=== PATIENT | female | born 1945 | race Caucasian/White ===

== ENCOUNTER → 2023-10-10 09:46 | Outpatient (REF) | payer MEDICARE, SELFPAY ==
[2023-10-10 10:39] LABS: % Basophils 0.9 % (0-2); % Eosinophils 1.1 % (0-6); % Immature Granulocytes 0.4 % (0-0.5); % Lymphocytes 24.4 % (20.5-51.1); % Neutrophils 67.2 % (42.2-75.2); Absolute Basophils 0.1 10^3/uL (0-0.2); Absolute Eosinophils 0.1 10^3/uL (0-0.7); Absolute Lymphocytes 1.9 10^3/uL (1.2-3.4); Absolute Monocytes 0.5 10^3/uL (0.1-0.6); Absolute Neutrophils 5.3 10^3/uL (1.4-6.5); Hematocrit 38.1 % (37.0-47.0); Hemoglobin 12.8 g/dL (12.0-16.0); Mean Corp Hgb Conc. 33.6 g/dL (33.0-37.0); Mean Corpuscular Hgb 31.4 pg (27.0-31.0); Mean Corpuscular Volume 93.4 fL (81.0-99.0); Mean Platelet Volume 9.5 fL (7.4-10.4); NT-proBNP 419 pg/ml; Nucleated Red Blood Cells % 0 %; Platelet Count 378 10^3/uL (130-400); Red Blood Cell Count 4.08 10^6/uL (4.20-5.40); White Blood Cell Count 7.8 10^3/uL (4.8-10.8)
[2023-10-10 10:50] LABS: ALT (SGPT) 11 U/L (0-35); AST (SGOT) 18 U/L (14-36); Albumin 4.3 g/dl (3.5-5.0); Alkaline Phosphatase 86 U/L (38-126); Blood Urea Nitrogen 16 mg/dl (7-17); Calcium 10.8 mg/dl (8.4-10.2); Chloride 102 mmol/L (98-107); Glucose 90 mg/dl (70-99); HDL Cholesterol 64 mg/dl; LDL Cholesterol, Calculated 130 mg/dl; Sodium 136 mmol/L (135-145); Total Bilirubin 0.8 mg/dl (0.2-1.3); Total Cholesterol 232 mg/dl (50-199); Total Protein 6.5 g/dl (6.3-8.2); Triglyceride 194 mg/dl (10-149); Very Low Density Lipoprotein 38 mg/dl (0-30); eGFR 46.91
[2023-10-10 10:58] LABS: Carbon Dioxide 25 mmol/L (22-30)
[2023-10-10 11:17] LABS: TSH Reflex To Free T4 0.98 uIU/ml (0.47-4.68)
== END ==
LOC: REG 09:46
PROVIDERS: ATTENDING PHYSICIAN Internal Medicine Cardiovascular Disease; FAMILY PHYSICIAN Family Medicine
DX: R60.0 Localized edema (principal); I10 Essential (primary) hypertension; E78.2 Mixed hyperlipidemia; R06.09 Other forms of dyspnea
CPT/HCPCS: 36415; 80053; 80061; 83880; 84443; 85025

== ENCOUNTER → 2023-11-28 10:40 | Outpatient (REF) | payer MEDICARE, SELFPAY | LOC: WDC 10:40 | PROVIDERS: ATTENDING PHYSICIAN Family Medicine | DX: Z12.31 Encounter for screening mammogram for malignant neoplasm of breast (principal) | CPT/HCPCS: 77063; 77067 ==

== ENCOUNTER → 2024-03-12 12:45 | Outpatient (REF) | payer MEDICARE, SELFPAY | LOC: RAD 12:45 | PROVIDERS: ATTENDING PHYSICIAN Internal Medicine Cardiovascular Disease; FAMILY PHYSICIAN Family Medicine | DX: I73.9 Peripheral vascular disease, unspecified (principal); Z87.891 Personal history of nicotine dependence | CPT/HCPCS: 93922; 93925 ==

== ENCOUNTER → 2024-03-18 13:16 | Outpatient (REF) | payer MEDICARE, SELFPAY | LOC: HWRAD 13:16 | PROVIDERS: ATTENDING PHYSICIAN Family Medicine | DX: Z87.891 Personal history of nicotine dependence (principal) | CPT/HCPCS: 71271 ==

== ENCOUNTER → 2024-05-02 12:32 | Outpatient (REF) | payer MEDICARE, SELFPAY | LOC: HWRAD 12:32 | PROVIDERS: ATTENDING PHYSICIAN Internal Medicine Critical Care Medicine; FAMILY PHYSICIAN Family Medicine | DX: R91.1 Solitary pulmonary nodule (principal) | CPT/HCPCS: 71250 ==

== ENCOUNTER → 2024-07-16 16:13 | Outpatient (REF) | payer MEDICARE, SELFPAY ==
[2024-07-16 17:41] LABS: % Basophils 0.6 % (0-2); % Eosinophils 1.1 % (0-6); % Immature Granulocytes 0.4 % (0-0.5); % Lymphocytes 26.6 % (20.5-51.1); % Monocytes 6.3 % (1.7-9.3); Absolute Basophils 0.1 10^3/uL (0-0.2); Absolute Eosinophils 0.1 10^3/uL (0-0.7); Absolute Lymphocytes 2.5 10^3/uL (1.2-3.4); Absolute Monocytes 0.6 10^3/uL (0.1-0.6); Hematocrit 35.2 % (37.0-47.0); Hemoglobin 11.8 g/dL (12.0-16.0); Mean Corp Hgb Conc. 33.5 g/dL (33.0-37.0); Mean Corpuscular Hgb 31.1 pg (27.0-31.0); Mean Corpuscular Volume 92.9 fL (81.0-99.0); Mean Platelet Volume 9.7 fL (7.4-10.4); Nucleated Red Blood Cells % 0 %; Platelet Count 364 10^3/uL (130-400); Red Blood Cell Count 3.79 10^6/uL (4.20-5.40); Red Cell Dist. Width 13.2 % (11.5-14.5); White Blood Cell Count 9.3 10^3/uL (4.8-10.8)
[2024-07-16 17:50] LABS: ALT (SGPT) 16 U/L (0-35); AST (SGOT) 21 U/L (14-36); Albumin 4.4 g/dl (3.5-5.0); Alkaline Phosphatase 87 U/L (38-126); Blood Urea Nitrogen 16 mg/dl (7-17); Calcium 10.5 mg/dl (8.4-10.2); Carbon Dioxide 27 mmol/L (22-30); Chloride 106 mmol/L (98-107); Glucose 119 mg/dl (70-99); Potassium 4.8 mmol/L (3.5-5.1); Sodium 140 mmol/L (135-145); Total Bilirubin 0.7 mg/dl (0.2-1.3); Total Protein 6.7 g/dl (6.3-8.2); eGFR 51.75
== END ==
LOC: REG 16:13
PROVIDERS: ATTENDING PHYSICIAN Internal Medicine Hematology & Oncology; FAMILY PHYSICIAN Family Medicine
DX: C50.912 Malignant neoplasm of unspecified site of left female breast (principal); R91.1 Solitary pulmonary nodule; C34.12 Malignant neoplasm of upper lobe, left bronchus or lung
CPT/HCPCS: 36415; 80053; 85025

== ENCOUNTER → 2024-08-01 10:03 | Outpatient (REF) | payer MEDICARE, SELFPAY ==
[2024-08-01] VITALS (11 sets, daily range): BP systolic 42–152; BP diastolic 58–114
[2024-08-01] MEDS: VANCOCIN 530 MG IV (10:53)
--- NOTE | 2024-08-01 12:30 | PTCARENOTE ---
Addendum entered by Rosa Tobias RN 08/01/24 13:08:
patient also given Pepcid due to patients sensitivity to antihistamines. Hives to right inner forearm have decreased in size.
Original Note:
patient returned to IR holding area post port placement. patient noted itching right forearm. cali size hives on lateral forearm. Dr. Ramos at bedside. ordered benadrl. patient reports history of feeling very drowsy with use of antihistamines.
Dr. ramos aware. okay to give benadryl noting no true allergy.
[2024-08-01] MEDS: BENADRYL 25 MG IV (12:33)
[2024-08-01] MEDS: NSS (PRESERVATIVE FREE) 8 ML IV (12:52)
[2024-08-01] MEDS: PEPCID 20 MG IV (12:53)
--- NOTE | 2024-08-01 13:40 | PTCARENOTE ---
patients left hand INT removed before discharge. patient returned to radiology after d/c with c/o left hand swelling and purple color. pressure held on left hand for 10min and ice bag placed. swelling noted to retreat. dot [place] around swelling
and instructed patient and daughter Philly to call with worsening symptoms.
== END ==
LOC: RADI 10:03
PROVIDERS: ATTENDING PHYSICIAN Internal Medicine Hematology & Oncology; FAMILY PHYSICIAN Family Medicine
DX: C50.912 Malignant neoplasm of unspecified site of left female breast (principal); C34.12 Malignant neoplasm of upper lobe, left bronchus or lung
CPT/HCPCS: 36561; 76937; 77001; 99152; 99153; C1788

== ENCOUNTER → 2024-08-12 09:40 | Outpatient (REF) | payer MEDICARE, SELFPAY ==
[2024-08-12 10:34] LABS: Hematocrit 32.4 % (37.0-47.0); Hemoglobin 10.8 g/dL (12.0-16.0); Mean Corp Hgb Conc. 33.3 g/dL (33.0-37.0); Mean Corpuscular Hgb 31.1 pg (27.0-31.0); Mean Corpuscular Volume 93.4 fL (81.0-99.0); Mean Platelet Volume 9.9 fL (7.4-10.4); Platelet Count 271 10^3/uL (130-400); Red Blood Cell Count 3.47 10^6/uL (4.20-5.40); Red Cell Dist. Width 12.9 % (11.5-14.5); White Blood Cell Count 3.9 10^3/uL (4.8-10.8)
[2024-08-12 10:55] LABS: % Eosinophils 1.3 % (0-6); % Lymphocytes 21.6 % (20.5-51.1); % Monocytes 1.3 % (1.7-9.3); % Neutrophils 75.8 % (42.2-75.2); Absolute Eosinophils 0.1 10^3/uL (0-0.7); Absolute Lymphocytes 0.8 10^3/uL (1.2-3.4); Absolute Monocytes 0.1 10^3/uL (0.1-0.6); Nucleated Red Blood Cells % 0 %
[2024-08-12 14:54] LABS: ALT (SGPT) 17 U/L (0-35); AST (SGOT) 20 U/L (14-36); Albumin 3.8 g/dl (3.5-5.0); Alkaline Phosphatase 95 U/L (38-126); Blood Urea Nitrogen 15 mg/dl (7-17); Calcium 9.8 mg/dl (8.4-10.2); Carbon Dioxide 23 mmol/L (22-30); Chloride 108 mmol/L (98-107); Glucose 86 mg/dl (70-99); Potassium 5.3 mmol/L (3.5-5.1); Sodium 138 mmol/L (135-145); Total Bilirubin 0.8 mg/dl (0.2-1.3); Total Protein 6.1 g/dl (6.3-8.2); eGFR 58.02
== END ==
LOC: REG 09:40
PROVIDERS: ATTENDING PHYSICIAN Internal Medicine Hematology & Oncology; FAMILY PHYSICIAN Family Medicine
DX: C50.912 Malignant neoplasm of unspecified site of left female breast (principal); R91.1 Solitary pulmonary nodule; C34.12 Malignant neoplasm of upper lobe, left bronchus or lung
CPT/HCPCS: 36415; 80053; 85025

== ENCOUNTER → 2024-08-19 09:32 | Outpatient (REF) | payer MEDICARE, SELFPAY ==
[2024-08-19 10:11] LABS: % Basophils 0.2 % (0-2); % Eosinophils 0.4 % (0-6); % Immature Granulocytes 0.2 % (0-0.5); % Lymphocytes 39.7 % (20.5-51.1); % Monocytes 1.1 % (1.7-9.3); % Neutrophils 58.4 % (42.2-75.2); Absolute Lymphocytes 1.8 10^3/uL (1.2-3.4); Absolute Monocytes 0.1 10^3/uL (0.1-0.6); Absolute Neutrophils 2.7 10^3/uL (1.4-6.5); Hematocrit 31.3 % (37.0-47.0); Hemoglobin 10.6 g/dL (12.0-16.0); Mean Corp Hgb Conc. 33.9 g/dL (33.0-37.0); Mean Corpuscular Hgb 30.5 pg (27.0-31.0); Mean Corpuscular Volume 89.9 fL (81.0-99.0); Nucleated Red Blood Cells % 0 %; Platelet Count 109 10^3/uL (130-400); Red Blood Cell Count 3.48 10^6/uL (4.20-5.40); Red Cell Dist. Width 12.1 % (11.5-14.5); White Blood Cell Count 4.6 10^3/uL (4.8-10.8)
[2024-08-19 14:37] LABS: ALT (SGPT) 28 U/L (0-35); AST (SGOT) 24 U/L (14-36); Albumin 4.1 g/dl (3.5-5.0); Alkaline Phosphatase 97 U/L (38-126); Blood Urea Nitrogen 15 mg/dl (7-17); Calcium 9.7 mg/dl (8.4-10.2); Carbon Dioxide 27 mmol/L (22-30); Chloride 100 mmol/L (98-107); Glucose 79 mg/dl (70-99); Potassium 5.1 mmol/L (3.5-5.1); Sodium 133 mmol/L (135-145); Total Bilirubin 0.9 mg/dl (0.2-1.3); Total Protein 6.3 g/dl (6.3-8.2); eGFR > 60.00
== END ==
LOC: REG 09:32
PROVIDERS: ATTENDING PHYSICIAN Internal Medicine Hematology & Oncology; FAMILY PHYSICIAN Family Medicine
DX: C50.912 Malignant neoplasm of unspecified site of left female breast (principal); R91.1 Solitary pulmonary nodule; C34.12 Malignant neoplasm of upper lobe, left bronchus or lung
CPT/HCPCS: 36415; 80053; 85025

== ENCOUNTER → 2024-08-26 10:36 | Outpatient (REF) | payer MEDICARE, SELFPAY ==
[2024-08-26 12:17] LABS: Hematocrit 27.5 % (37.0-47.0); Hemoglobin 9.3 g/dL (12.0-16.0); Mean Corp Hgb Conc. 33.8 g/dL (33.0-37.0); Mean Corpuscular Volume 90.5 fL (81.0-99.0); Nucleated Red Blood Cells % 0 %; Platelet Count 160 10^3/uL (130-400); Red Cell Dist. Width 12.3 % (11.5-14.5)
[2024-08-26 14:02] LABS: ALT (SGPT) 31 U/L (0-35); AST (SGOT) 22 U/L (14-36); Albumin 4.0 g/dl (3.5-5.0); Alkaline Phosphatase 118 U/L (38-126); Blood Urea Nitrogen 8 mg/dl (7-17); Calcium 9.9 mg/dl (8.4-10.2); Carbon Dioxide 25 mmol/L (22-30); Chloride 103 mmol/L (98-107); Glucose 91 mg/dl (70-99); Potassium 5.0 mmol/L (3.5-5.1); Sodium 134 mmol/L (135-145); Total Protein 6.2 g/dl (6.3-8.2); eGFR > 60.00
== END ==
LOC: REG 10:36
PROVIDERS: ATTENDING PHYSICIAN Internal Medicine Hematology & Oncology; FAMILY PHYSICIAN Family Medicine
DX: C50.912 Malignant neoplasm of unspecified site of left female breast (principal); R91.1 Solitary pulmonary nodule; C34.12 Malignant neoplasm of upper lobe, left bronchus or lung
CPT/HCPCS: 36415; 80053; 85025

== ENCOUNTER → 2024-09-02 10:36 | Outpatient (REF) | payer MEDICARE, SELFPAY ==
[2024-09-02 11:52] LABS: Hematocrit 28.0 % (37.0-47.0); Hemoglobin 9.5 g/dL (12.0-16.0); Mean Corp Hgb Conc. 33.9 g/dL (33.0-37.0); Mean Corpuscular Volume 89.7 fL (81.0-99.0); Nucleated Red Blood Cells % 0 %; Platelet Count 502 10^3/uL (130-400); Red Cell Dist. Width 13.0 % (11.5-14.5)
[2024-09-02 12:27] LABS: ALT (SGPT) 33 U/L (0-35); AST (SGOT) 32 U/L (14-36); Albumin 4.2 g/dl (3.5-5.0); Alkaline Phosphatase 99 U/L (38-126); Blood Urea Nitrogen 16 mg/dl (7-17); Calcium 9.8 mg/dl (8.4-10.2); Carbon Dioxide 26 mmol/L (22-30); Chloride 97 mmol/L (98-107); Glucose 82 mg/dl (70-99); Potassium 5.4 mmol/L (3.5-5.1); Sodium 130 mmol/L (135-145); Total Protein 6.5 g/dl (6.3-8.2); eGFR > 60.00
== END ==
LOC: REG 10:36
PROVIDERS: ATTENDING PHYSICIAN Internal Medicine Hematology & Oncology; FAMILY PHYSICIAN Family Medicine
DX: C50.912 Malignant neoplasm of unspecified site of left female breast (principal); R91.1 Solitary pulmonary nodule; C34.12 Malignant neoplasm of upper lobe, left bronchus or lung
CPT/HCPCS: 36415; 80053; 85025

== ENCOUNTER → 2024-09-09 10:32 | Outpatient (REF) | payer MEDICARE, SELFPAY ==
[2024-09-09 11:33] LABS: Hematocrit 25.7 % (37.0-47.0); Hemoglobin 8.7 g/dL (12.0-16.0); Mean Corp Hgb Conc. 33.9 g/dL (33.0-37.0); Mean Corpuscular Volume 89.9 fL (81.0-99.0); Platelet Count 133 10^3/uL (130-400); Red Cell Dist. Width 13.1 % (11.5-14.5)
[2024-09-09 11:57] LABS: ALT (SGPT) 34 U/L (0-35); AST (SGOT) 28 U/L (14-36); Albumin 4.0 g/dl (3.5-5.0); Alkaline Phosphatase 98 U/L (38-126); Blood Urea Nitrogen 12 mg/dl (7-17); Calcium 9.6 mg/dl (8.4-10.2); Carbon Dioxide 25 mmol/L (22-30); Chloride 97 mmol/L (98-107); Glucose 95 mg/dl (70-99); Potassium 5.0 mmol/L (3.5-5.1); Sodium 128 mmol/L (135-145); Total Protein 6.2 g/dl (6.3-8.2); eGFR > 60.00
[2024-09-09 11:59] LABS: Nucleated Red Blood Cells % 0 %
== END ==
LOC: REG 10:32
PROVIDERS: ATTENDING PHYSICIAN Internal Medicine Hematology & Oncology; FAMILY PHYSICIAN Family Medicine
DX: C50.812 Malignant neoplasm of overlapping sites of left female breast (principal); R91.1 Solitary pulmonary nodule; C34.12 Malignant neoplasm of upper lobe, left bronchus or lung
CPT/HCPCS: 36415; 80053; 85025

== ENCOUNTER → 2024-09-16 09:51 | Outpatient (REF) | payer MEDICARE, SELFPAY ==
[2024-09-16 11:04] LABS: Hematocrit 22.6 % (37.0-47.0); Hemoglobin 7.5 g/dL (12.0-16.0); Mean Corp Hgb Conc. 33.2 g/dL (33.0-37.0); Mean Corpuscular Volume 90.4 fL (81.0-99.0); Nucleated Red Blood Cells % 0 %; Red Cell Dist. Width 13.1 % (11.5-14.5)
[2024-09-16 11:15] LABS: ALT (SGPT) 27 U/L (0-35); AST (SGOT) 23 U/L (14-36); Albumin 3.8 g/dl (3.5-5.0); Alkaline Phosphatase 97 U/L (38-126); Blood Urea Nitrogen 10 mg/dl (7-17); Calcium 9.3 mg/dl (8.4-10.2); Carbon Dioxide 25 mmol/L (22-30); Chloride 100 mmol/L (98-107); Glucose 114 mg/dl (70-99); Potassium 4.8 mmol/L (3.5-5.1); Sodium 131 mmol/L (135-145); Total Protein 6.1 g/dl (6.3-8.2); eGFR > 60.00
[2024-09-16 11:34] LABS: Platelet Count 62 10^3/uL (130-400)
== END ==
LOC: REG 09:51
PROVIDERS: ATTENDING PHYSICIAN Internal Medicine Hematology & Oncology; FAMILY PHYSICIAN Family Medicine
DX: R91.1 Solitary pulmonary nodule (principal); C34.12 Malignant neoplasm of upper lobe, left bronchus or lung; C50.912 Malignant neoplasm of unspecified site of left female breast
CPT/HCPCS: 36415; 80053; 85025

== ENCOUNTER 2024-09-16 17:37 | Emergency (ER) | payer MEDICARE, SELFPAY ==
[2024-09-16] VITALS (8 sets, daily range): BP systolic 133–168; BP diastolic 55–88; BMI 36.7
--- NOTE | 2024-09-16 21:43 | ED.GENMED ---
History of Present Illness
General
Chief Complaint: Abnormal Lab Value
Source: patient and spouse
Exam Limitations: none
Time Seen by Provider: 09/16/24 19:31
History of Present Illness
History of Present Illness:
Note:
CHIEF COMPLAINT(S)
Anemia suspected due to chemotherapy.
HISTORY OF PRESENT ILLNESS
The patient is a 79-year-old female with a history of lung cancer, currently undergoing chemotherapy. She was referred to the emergency department from the outpatient infusion center for blood transfusions. The referral was due to concerns from the
infusion center about abnormal blood work results indicative of anemia, which was thought to be secondary to chemotherapy. The patient did not report any breathing difficulties associated with anemia nor any recent history of blood in the stool. The
chemotherapy was last administered on the 04 of September.
ADDITIONAL HISTORY OBTAINED FROM SOURCES OTHER THAN THE PATIENT
The patient mentioned being referred by the outpatient infusion centers healthcare providers due to abnormal blood work findings concerning for anemia.
SOCIAL HISTORY
The patient reports chemotherapy treatment for lung cancer.
PHYSICAL EXAM
- Nursing notes reviewed and vital signs reviewed.
- Skin: Ecchymosis noted on multiple extremities.
- Oral Cavity: Pale oral mucosa.
- Cardiovascular: S1, S2 heart sounds present, no S3, S4, normal rate and rhythm.
- Pulmonary: No respiratory distress, lungs clear bilaterally.
- Abdomen: Soft, non-tender.
- Extremities: Mild bilateral lower extremity edema.
- Neurologic: Extraocular muscles intact.
PROBLEM LIST
- Acute: Anemia, likely secondary to chemotherapy.
- Chronic: Lung cancer.
PLAN
Discussions with the healthcare team at the infusion center, further evaluation and management of anemia.
DIFFERENTIAL DIAGNOSIS
The Differential Diagnosis includes, in no particular order and is not limited to:
1. Chemotherapy-induced anemia.
2. Nutritional deficiencies (e.g., iron, vitamin B12, or folate deficiency).
3. Chronic disease anemia related to cancer.
4. Gastrointestinal bleeding.
5. Bone marrow suppression.
6. Renal insufficiency.
7. Hemolytic anemia.
8. Myelodysplastic syndrome.
9. Blood loss from other sources.
10. Aplastic anemia.
CARE-UPDATE
09/16/24 - 21:47
Recommended transfusion of one unit of packed red blood cells followed by discharge, as per consultation with Dr. Dejesus from hematology and oncology. Patient in agreement with proposed plan.
Disposition:
SUMMARY OF ENCOUNTER
The patient, a 79-year-old female with ongoing lung cancer treatment, was seen in the emergency department due to anemia suspected secondary to recent chemotherapy. The referral from the outpatient infusion center was based on lab work indicating
low blood levels, leading to a decision for blood transfusion. In the emergency department, she received one unit of packed red blood cells. Her condition was carefully monitored, and her anemia was assessed as chemotherapy-induced.
DISPOSITION
Discharge
ASSESSMENT
Patients anemia is likely secondary to the chemotherapy regimen for lung cancer.
MANAGEMENT OF THE PATIENTS CARE WAS DISCUSSED WITH
Consultation with Dr. Dejesus from hematology and oncology confirmed the treatment plan.
PLAN
The patient was successfully transfused with one unit of packed red blood cells. She will be discharged with instructions to monitor her symptoms and return if she experiences worsening fatigue or any new symptoms. Arrangements for follow-up care
via the outpatient infusion center have been confirmed.
INDEPENDENT REVIEW OF LABS AND INTERPRETATION OF TESTS
My independent review of the labs suggests chemotherapy-induced anemia, consistent with abnormal blood work from the outpatient infusion center.
FOLLOW-UP INSTRUCTIONS
The patient is advised to follow up promptly with her oncology team to coordinate ongoing management of her chemotherapy-induced anemia.
MEDICAL DECISION MAKING
- Number and Complexity of Problems Addressed: Chronic conditions affecting care [lung cancer] and DDx list: 1. Chemotherapy-induced anemia. 2. Nutritional deficiencies (e.g., iron, vitamin B12, or folate deficiency). 3. Chronic disease anemia
related to cancer. 4. Gastrointestinal bleeding. 5. Bone marrow suppression. 6. Renal insufficiency. 7. Hemolytic anemia. 8. Myelodysplastic syndrome. 9. Blood loss from other sources. 10. Aplastic anemia.
- Data:
Category 1: Independent review of labs confirmed anemia and a need for transfusion.
Category 2: Clinical information obtained from outpatient infusion center reported abnormal blood work indicative of anemia, leading to this visit.
Category 3: Coordination with Dr. Dejesus from hematology/oncology finalized transfusion and discharge plans.
- Risk: Consideration of Admission/Observation: Escalation of care including admission/observation was considered given the complexity and risk of the patients presenting complaint, exam findings, and/or their underlying comorbidities. However,
ultimately I feel the patient is safe for outpatient management with close follow-up. Reasoning: Work-up reassuring, does not reveal any acute life/organ-threatening processes, patients symptoms well-controlled upon reevaluation, reexamination is
reassuring, vitals are stable, patient agreeable with discharge, reliable for follow-up.
DIAGNOSIS
- Anemia due to antineoplastic chemotherapy (ICD-10: D64.81)
- Thrombocytopenia (ICD-10: D69.6)
DISCLAIMERS
Always verify ICD-10 codes for accuracy and clinical relevance in context.
Past History
Past History
ED Past Medical History: Arrthythmia (Paroxysmal atrial fibrillation), Cancer (Breast cancer), HTN, Psychiatric and Other (Anemia)
ED Past Surgical History: Appendectomy and Gynecological
Social History
Tobacco: Smoker
Alcohol: None
Drug: None
Living: with family
Employment: Retired
Family History
Family History: Other (Noncontributory)
Phy Exam
Physical Exam
Physical Exam:
.
Course
Orders/Labs/Results
Orders:
Orders
09/16/24 20:08
* Blood Bank Products Urgent
Blood Bank Products: *Packed RBC Leuko(PRBC's)
Quantity: 1
Transfuse Today: Yes
Reason: Anemia
09/16/24 20:48
Type+Screen Urgent
Abnormal Lab Results
09/16/24
20:48
Crossmatch IS Only See Detail
Vital Signs
Initial and Last Documented VS:
Initial Vital Signs
Temp Pulse Resp BP Pulse Ox
98.4 F 78 16 168/88 98
09/16/24 17:41 09/16/24 17:41 09/16/24 17:41 09/16/24 17:41 09/16/24 17:41
Last Documented Vital Signs
Temp Pulse Resp BP Pulse Ox
98.1 F 61 18 134/71 99
09/17/24 00:53 09/17/24 00:53 09/17/24 00:53 09/17/24 00:53 09/17/24 00:53
*Pulse Oximetry
SaO2: 98
Oxygen Mode of Delivery: Room air
Patient hypoxic: no
*Critical Care Note
Total Time (30-74mins, 75-104mins- exclusive of procedures): 32 (Critical care statement: A total of 32 minutes of critical care time was provided for this patient. This includes management of unstable vital signs, evaluation of the patient at
bedside, reviewing the patient's pertinent medical records, discussion with consultants, review of old EKGs and review of)
ED Attending Note
-
Portions of this chart may have been created with voice recognition software.� Occasional wrong word or��sound alike� substitutions may have occurred due to the inherent limitations of voice recognition software.
Discharge Plan
Departure
Patient Disposition: Home (Routine Discharge)
Patient with high blood pressure during this ER visit?: Yes
Condition: Fair
Discharge Problem:
Anemia, Thrombocytopenia
Instructions: Blood transfusion, Anemia overview, BLOOD PRESSURE
Prescriptions:
No Action
lorazepam 1 MG tablet
1 mg PO TID
Patient Comments:
5x daily
Eliquis 5 MG tablet
5 mg PO BID
lorazepam 2 MG tablet
2 mg PO HS
famotidine 20 MG tablet
20 mg PO BID
losartan [Cozaar] 100 MG tablet
100 mg PO DAILY Qty: 0 0RF
Rx Instructions:
HOLD SYSTOLIC BLOOD PRESSURE < 130 IF TAKING HYDROCODONE
acetaminophen [Tylenol] 325 mg Tablet
650 mg PO QID PRN (Reason: pain)
doxazosin 1 mg Tablet
1 mg PO DAILY
vitamin Z89-olprf acid 1-0.8 mg Tablet
1 tab PO HS
Referrals:
Gabriel Dejesus, DO [Active, Hematology / Oncology] - Call in 1-3 days for appt
UNKNOWN - PT DOES,NOT KNOW [Unknown Provider]
Interventions
Interventions:
*Risk Screen - Suicide Last Done: 09/16/24 17:41
*General Assessment Last Done: 09/16/24 19:48
*Neglect/Abuse Screening Last Done: 09/16/24 17:41
*ED- Fall Risk Assessment Last Done: 09/16/24 19:48
*ED COVID-19 Vaccine History Last Done: 09/16/24 19:48
*Nursing Disposition Last Done: 09/17/24 02:00
Discharge Date and Time
Discharge Date/Time: 09/17/24 02:01
Print Language: FIJIAN
[2024-09-17] VITALS: BP 142/71
[2024-09-17 00:51] VITALS: BP 134/71
[2024-09-17 00:53] VITALS: BP 134/71
== END 2024-09-17 02:01 | disposition home or self-care (01) ==
LOC: EMR 17:37
PROVIDERS: EMERGENCY PHYSICIAN Emergency Medicine; FAMILY PHYSICIAN Family Medicine
DX: D64.81 Anemia due to antineoplastic chemotherapy (principal); T45.1X5A Adverse effect of antineoplastic and immunosuppressive drugs, initial encounter; C34.90 Malignant neoplasm of unspecified part of unspecified bronchus or lung; D69.6 Thrombocytopenia, unspecified; F17.200 Nicotine dependence, unspecified, uncomplicated; I10 Essential (primary) hypertension; I48.0 Paroxysmal atrial fibrillation; Z85.3 Personal history of malignant neoplasm of breast
CPT/HCPCS: 99283; 36430; 86850; 86900; 86901; 86920; P9016

== ENCOUNTER → 2024-09-23 08:32 | Outpatient (REF) | payer MEDICARE, SELFPAY ==
[2024-09-23 11:29] LABS: Hematocrit 26.0 % (37.0-47.0); Hemoglobin 8.5 g/dL (12.0-16.0); Mean Corp Hgb Conc. 32.7 g/dL (33.0-37.0); Mean Corpuscular Volume 93.2 fL (81.0-99.0); Platelet Count 834 10^3/uL (130-400); Red Cell Dist. Width 14.8 % (11.5-14.5)
[2024-09-23 11:40] LABS: Absolute Neutrophils -Man Diff 1.6 10^3/uL (1.4-6.5); Anisocytosis 1+; Hypochromasia Slight; Normal RBC Morphology No; Ovalocytes 1+; Platelets Checked Yes; Polychromasia 1+
[2024-09-23 11:41] LABS: Total Cells Counted 100
[2024-09-23 11:51] LABS: ALT (SGPT) 19 U/L (0-35); AST (SGOT) 22 U/L (14-36); Albumin 4.1 g/dl (3.5-5.0); Alkaline Phosphatase 107 U/L (38-126); Blood Urea Nitrogen 6 mg/dl (7-17); Calcium 10.0 mg/dl (8.4-10.2); Carbon Dioxide 24 mmol/L (22-30); Chloride 104 mmol/L (98-107); Glucose 91 mg/dl (70-99); Potassium 5.2 mmol/L (3.5-5.1); Sodium 135 mmol/L (135-145); Total Protein 6.5 g/dl (6.3-8.2); eGFR > 60.00
== END ==
LOC: RAD 08:32
PROVIDERS: ATTENDING PHYSICIAN Internal Medicine Hematology & Oncology; FAMILY PHYSICIAN Family Medicine; OTHER PHYSICIAN Nurse Practitioner Adult Health
DX: C50.912 Malignant neoplasm of unspecified site of left female breast (principal); R91.1 Solitary pulmonary nodule; C34.12 Malignant neoplasm of upper lobe, left bronchus or lung; R60.9 Edema, unspecified
CPT/HCPCS: 36415; 80053; 85025; 93970

== ENCOUNTER → 2024-09-30 09:51 | Outpatient (REF) | payer MEDICARE, SELFPAY ==
[2024-09-30 12:04] LABS: Hematocrit 25.5 % (37.0-47.0); Hemoglobin 8.2 g/dL (12.0-16.0); Mean Corp Hgb Conc. 32.2 g/dL (33.0-37.0); Mean Corpuscular Volume 93.8 fL (81.0-99.0); Platelet Count 621 10^3/uL (130-400); Red Cell Dist. Width 15.4 % (11.5-14.5)
[2024-09-30 12:37] LABS: ALT (SGPT) 34 U/L (0-35); AST (SGOT) 30 U/L (14-36); Albumin 3.9 g/dl (3.5-5.0); Alkaline Phosphatase 98 U/L (38-126); Blood Urea Nitrogen 12 mg/dl (7-17); Calcium 9.5 mg/dl (8.4-10.2); Carbon Dioxide 28 mmol/L (22-30); Chloride 103 mmol/L (98-107); Glucose 88 mg/dl (70-99); Potassium 5.3 mmol/L (3.5-5.1); Sodium 135 mmol/L (135-145); Total Protein 6.2 g/dl (6.3-8.2); eGFR > 60.00
[2024-09-30 13:34] LABS: Nucleated Red Blood Cells % 0 %
== END ==
LOC: REG 09:51
PROVIDERS: ATTENDING PHYSICIAN Internal Medicine Hematology & Oncology; FAMILY PHYSICIAN Family Medicine
DX: C50.912 Malignant neoplasm of unspecified site of left female breast (principal); R91.1 Solitary pulmonary nodule; C34.12 Malignant neoplasm of upper lobe, left bronchus or lung
CPT/HCPCS: 36415; 80053; 85025

== ENCOUNTER → 2024-10-07 11:35 | Outpatient (REF) | payer MEDICARE, SELFPAY ==
[2024-10-07 12:34] LABS: Hematocrit 23.5 % (37.0-47.0); Hemoglobin 7.8 g/dL (12.0-16.0); Mean Corp Hgb Conc. 33.2 g/dL (33.0-37.0); Mean Corpuscular Volume 92.5 fL (81.0-99.0); Platelet Count 137 10^3/uL (130-400); Red Cell Dist. Width 14.8 % (11.5-14.5)
[2024-10-07 12:48] LABS: ALT (SGPT) 46 U/L (0-35); AST (SGOT) 32 U/L (14-36); Albumin 4.1 g/dl (3.5-5.0); Alkaline Phosphatase 88 U/L (38-126); Blood Urea Nitrogen 16 mg/dl (7-17); Calcium 9.5 mg/dl (8.4-10.2); Carbon Dioxide 26 mmol/L (22-30); Chloride 102 mmol/L (98-107); Glucose 90 mg/dl (70-99); Potassium 4.2 mmol/L (3.5-5.1); Sodium 135 mmol/L (135-145); Total Protein 6.4 g/dl (6.3-8.2); eGFR > 60.00
[2024-10-07 13:22] LABS: Nucleated Red Blood Cells % 0 %
== END ==
LOC: REG 11:35
PROVIDERS: ATTENDING PHYSICIAN Internal Medicine Hematology & Oncology; FAMILY PHYSICIAN Family Medicine
DX: C50.812 Malignant neoplasm of overlapping sites of left female breast (principal); R91.1 Solitary pulmonary nodule; C34.12 Malignant neoplasm of upper lobe, left bronchus or lung
CPT/HCPCS: 36415; 80053; 85025

== ENCOUNTER 2024-10-08 08:51 | Emergency (ER) | payer MEDICARE, SELFPAY ==
[2024-10-08 08:57] VITALS: BP 192/87
--- NOTE | 2024-10-08 10:08 | ED.GENMED ---
History of Present Illness
General
Chief Complaint: Abnormal Lab Value
Source: patient and records
Exam Limitations: none
Time Seen by Provider: 10/08/24 09:55
History of Present Illness
History of Present Illness:
79yoF with history of lung cancer receiving chemotherapy, atrial fibrillation, hypertension, hyperlipidemia, and anemia presenting for a blood transfusion. Patient follows with Dr. Gordillo at [facility]. She receives blood work every
Monday. She had blood work yesterday and hemoglobin was 7.8. Her oncologist wants her hemoglobin >8. The infusion center did not have any appointments so she was sent to the ED for a transfusion. Last hemoglobin was 8.1 on 09/30/24. She was seen
in the ED on 09/16/24 for a transfusion and hemoglobin was 7.5 at that time. Patient denies any hematochezia, melena, dizziness, syncope. Her only current symptom is fatigue.
Past History
Past History
ED Past Medical History: Arrthythmia (Paroxysmal atrial fibrillation), Cancer (Breast cancer), HTN, Psychiatric and Other (Anemia)
ED Past Surgical History: Appendectomy and Gynecological
Social History
Tobacco: Smoker
Alcohol: None
Drug: None
Living: with family
Employment: Retired
Family History
Family History: Other (Noncontributory)
Phy Exam
General Physical Exam
General Presentation: well appearing and no apparent distress
General Skin: warm and dry
General Habitus: normal
General Mental: alert
ENT Exam
ENT Exam: normocephalic
Cardiovascular Exam
Cardiovascular Exam: regular rate/rhythm and no edema
Pulmonary Exam
Pulmonary Exam: lungs clear, no respiratory distress, no rales, no crackles, no rhonchi and no wheezing
Neurological Exam
Neurological Exam: alert
[place] Coma Scale
Eye Opening: Spontaneous
Verbal Response: Oriented
Motor Response: Obeys Commands
GCS Total Score: 15
Skin Exam
Skin Exam: warm/dry
Psychiatric Exam
Psychiatric Exam: normal mood/affect
Course
Orders/Labs/Results
Orders:
Orders
10/08/24 10:04
Blood Bank Products [* Blood Bank Products] Urgent
Blood Bank Products: *Packed RBC Leuko(PRBC's)
Quantity: 1
Transfuse Today: Yes
Reason: Anemia
10/08/24 10:23
Type+Screen Urgent
Abnormal Lab Results
10/08/24
10:23
Crossmatch IS Only See Detail
Vital Signs
Initial and Last Documented VS:
Initial Vital Signs
Temp Pulse Resp BP Pulse Ox
98.5 F 63 18 192/87 99
10/08/24 08:57 10/08/24 08:57 10/08/24 08:57 10/08/24 08:57 10/08/24 08:57
Last Documented Vital Signs
Temp Pulse Resp BP Pulse Ox
98.1 F 59 20 153/71 100
10/08/24 12:14 10/08/24 12:14 10/08/24 12:14 10/08/24 12:14 10/08/24 12:14
MDM/Problems Addressed
Differential Diagnosis Includes:
79yoF here for blood transfusion. Hemoglobin 7.8 on outpatient labs yesterday and her oncologist wants her >8. Denies bleeding. Currently on chemo for lung cancer and received transfusion about 3 weeks ago. She is hypertensive with otherwise stable
vitals. She is in no distress. Differential diagnosis includes: bone marrow suppression related to chemotherapy, anemia of chronic disease, iron deficiency anemia, doubt GI bleed given lack of symptoms
Initial ED plan: No indication for repeat labs at that time as labs were done <24 hours ago. Consent obtained and 1 unit PRBC ordered for transfusion.
*Pulse Oximetry
SaO2: 99
Oxygen Mode of Delivery: Room air
Patient hypoxic: no (99%)
*Critical Care Note
Total Time (30-74mins, 75-104mins- exclusive of procedures): Not Applicable
Update Note
Update Note:
Patient received transfusion without incident. She is stable for discharge. Patient is scheduled to have repeat blood done next week. She was advised to f/u with her oncologist.
ED Attending Note
-
Portions of this chart may have been created with voice recognition software.� Occasional wrong word or��sound alike� substitutions may have occurred due to the inherent limitations of voice recognition software.
Discharge Plan
Departure
Patient Disposition: Home (Routine Discharge)
Date of Disposition: 10/08/24
Time of Disposition: 13:24
Patient with high blood pressure during this ER visit?: Yes
Discharge Problem:
Anemia
Instructions: Anemia in adults, possibly from low iron - ED discharge instructions
Prescriptions:
No Action
lorazepam 1 MG tablet
1 mg PO TID
Patient Comments:
5x daily
Eliquis 5 MG tablet
5 mg PO BID
lorazepam 2 MG tablet
2 mg PO HS
famotidine 20 MG tablet
20 mg PO BID
losartan [Cozaar] 100 MG tablet
100 mg PO DAILY Qty: 0 0RF
Rx Instructions:
HOLD SYSTOLIC BLOOD PRESSURE < 130 IF TAKING HYDROCODONE
acetaminophen [Tylenol] 325 mg Tablet
650 mg PO QID PRN (Reason: pain)
doxazosin 1 mg Tablet
1 mg PO DAILY
vitamin F87-egvdp acid 1-0.8 mg Tablet
1 tab PO HS
Referrals:
North Jung MD [Family Provider, Family Practice]
Activity Restrictions/Additional Instructions:
Please follow-up with your oncologist and have repeat blood work on Monday.
Return to the ER with any worsening symptoms or bloody/black stools.
Interventions
Interventions:
*Risk Screen - Suicide Last Done: 10/08/24 08:57
*General Assessment Last Done: 10/08/24 08:57
*Neglect/Abuse Screening Last Done: 10/08/24 10:31
*ED COVID-19 Vaccine History Last Done: 10/08/24 10:31
Discharge Date and Time
Print Language: MACEDONIAN
[2024-10-08 10:28] VITALS: BP 145/64
[2024-10-08 11:56] VITALS: BP 178/78
[2024-10-08 12:14] VITALS: BP 153/71
[2024-10-08 13:43] VITALS: BP 156/84
== END 2024-10-08 13:57 | disposition home or self-care (01) ==
LOC: EMR 08:51
PROVIDERS: EMERGENCY PHYSICIAN Emergency Medicine; FAMILY PHYSICIAN Family Medicine
DX: D64.9 Anemia, unspecified (principal); C34.90 Malignant neoplasm of unspecified part of unspecified bronchus or lung; I48.0 Paroxysmal atrial fibrillation; I10 Essential (primary) hypertension; E78.5 Hyperlipidemia, unspecified; F17.200 Nicotine dependence, unspecified, uncomplicated; Z85.3 Personal history of malignant neoplasm of breast
CPT/HCPCS: 99285; 36430; 86850; 86900; 86901; 86920; P9016

== ENCOUNTER 2024-10-09 16:41 | Inpatient (IN) | payer MEDICARE, SELFPAY ==
[2024-10-09] VITALS (26 sets, daily range): BP systolic 111–180; BP diastolic 54–106; BMI 35.9; BMI 35.3
--- NOTE | 2024-10-09 07:38 | ED.GENMED ---
History of Present Illness
General
Chief Complaint: Heart Rate Problem
Source: patient
Exam Limitations: none
Time Seen by Provider: 10/09/24 07:20
Nursing documentation reviewed up to this point in time: agreed with
History of Present Illness
History of Present Illness:
Patient with history of breast cancer and lung cancer, currently receiving treatment, status post blood transfusion yesterday secondary to symptomatic anemia, presents to ED after waking up this morning with 'pounding sensation' in her chest with
back pain. Denies dizziness or nausea. Patient felt as though she was back in her atrial fibrillation rhythm, which she has had in the past. She does take Eliquis chronically. She did not take her a.m. Eliquis dose. Patient states that she was
feeling tired but without any other symptoms, when she went to sleep last night. Patient was given bolus of Cardizem on the way to ED by the paramedics. At the time evaluation ED, patient with increased heart rate, but denies any of the symptoms
that woke her up this morning.
Past History
Past History
ED Past Medical History: Arrthythmia (Paroxysmal atrial fibrillation), Cancer (Breast cancer), HTN, Psychiatric and Other (Anemia)
ED Past Surgical History: Appendectomy and Gynecological
Social History
Tobacco: Smoker
Alcohol: None
Drug: None
Living: with family
Employment: Retired
Family History
Family History: Other (Noncontributory)
Review of Systems
Review of Systems
Allergies reviewed?: Yes
All Other Systems: ROS reviewed and negative except as documented in HPI and ROS
Constitutional: Reports no symptoms; Denies fever
Respiratory: Reports no symptoms
Cardiac: Reports palpitations
ABD/GI: Reports no symptoms
Musculoskeletal: Reports no symptoms
Skin: Reports no symptoms
Neurological: Reports no symptoms
Phy Exam
Physical Exam
Physical Exam:
Physical Exam
General: no apparent distress, not acutely ill. afebrile
Head: nc/at. eomi
Neck: supple. normal range of motion.
Heart: irregular and tachycardic. No murmur.
Lungs: no acute respiratory distress. clear bilaterally
Abdomen: normal bowel sounds. not tender.
Neuro: alert and oriented x 3. no focal neurological deficits
Skin: no rash
Psychiatric: well kept. interactive and cooperative
Extremities: no edema. no calf tenderness.
Course
Orders/Labs/Results
Orders:
Orders
10/09/24 07:10
EKG [Electrocardiogram (*1)] Urgent
Reason for Study: Palpitations
EKG- Treatment ONCE
10/09/24 07:35
Diltiazem HCl [Cardizem] 20 mg IV NOW STA
10/09/24 07:36
0.9% Sodium Chloride 250 ml [Nss] 250 ml IV BOLUS
Apixaban [Eliquis] 5 mg PO NOW STA
10/09/24 07:39
Complete Blood Count/With Diff Urgent
Comprehensive Metabolic Panel Urgent
Magnesium Urgent
TSH Urgent
Troponin I Urgent
10/09/24 07:45
Diltiazem 125 mg/125 ml Nss [Cardizem] 125 mg in 125 ml IV PER PROTOCOL
Initial dose in mg/hr, then titrate:: 5
Titrate to keep:: Heart rate 80-100 bpm
Titrate by mg/hr:: 5 mg/hr
Frequency of titrations (minutes):: 15
Maximum dose in mg/hr:: 15
10/09/24 08:16
EKG [Electrocardiogram (*1)] Urgent
Reason for Study: Bradycardia / Tachycardia
10/09/24 08:17
EKG- Treatment ONCE
10/09/24 08:26
Diltiazem Extended Release [Cardizem Cd] 120 mg PO NOW STA
10/09/24 08:53
EKG- Treatment ONCE
10/09/24 10:00
Electrocardiogram (*1) Urgent
Reason for Study: Palpitations
10/09/24 10:40
Troponin I Urgent
10/09/24 11:46
Echo 2D MMode Color/Doppler Urgent
Reason for Study: ER bed 28, chest pain, elevated Troponin
Cardiology Consult: Ede Singh
10/09/24 11:55
CARDIOLOGY CONSULT Urgent
Consulting Provider: Ede Singh
Was physician already notified: Yes
Reason for consult: cp/a.fib/abnormal cardiac enzyme
10/09/24 13:00
Magnesium Sulfate 1 G/D5w [Magnesium Sulfate] 1 gm in 100 ml IV NOW
10/09/24 Dinner
Cholesterol Lowering
At Your Request: Full Participation
Cholesterol Lowering: Sodium, 2 Gram
10/09/24 16:33
Admit/Transfer Patient As Directed
Co-Sign Provider:
Level of Care: Inpatient admission
Assign to:: Telemetry
Physician / Group: Hospitalist
Diagnosis: Afib with RVR
Reason for Telemetry: Arrhythmia
Date to Stop Telemetry: 10/12/24
Time to Stop Telemetry: 11:00
Reason for Hospitalization: as above
Expected length of stay greater than two midnights?: Yes
ELOS- Estimated Length of Stay in days: 3
I certify the patient meets the requirements for IP care: Yes
PRN Pain Medication Management As Directed
May give lesser potent ordered pain med per pt: Yes
preference::
Protocol:: Medication orders for pain may be administered in a
manner that supports deferring to patient preference
when the pt is:
- Requesting an ordered lesser potent pain medication.
Least to most potent pain medications are defined
as: acetaminophen < NSAID < tramadol < opioids
(morphine, oxycodone, hydromorphone).
- Requesting a lesser dose of the same medication IF
ORDERED.
- Requesting a less intrusive route of administration
if both routes are prescribed by the provider (PO <
IV).
10/09/24 16:35
Code Status As Directed
Resuscitation Status: Full Code
10/09/24 16:40
Magnesium Sulfate 2 Gram/50 ml [Magnesium Sulfate] 2 gram in 50 ml IV NOW
10/09/24 17:09
Troponin I Q6H
10/09/24 17:54
Acetaminophen [Tylenol] 650 mg PO QIDPRN PRN mild pain
Bisacodyl [Dulcolax] 10 mg RECTAL [id number] PRN
Docusate W/Senna [Senokot-S] 1 tablet PO BIDPRN PRN
Polyethylene Glycol Powder [Miralax] 17 grams PO DAILYPRN PRN
10/09/24 17:54
Activity As Directed
Activity Level: As Tolerated
Vital Signs As Directed
Frequency: Per unit guidelines
10/09/24 18:00
Lorazepam [Ativan] 1 mg PO TID @ 0800,1200,1700
10/09/24 20:00
Apixaban [Eliquis] 5 mg PO BID
Famotidine [Pepcid] 20 mg PO BID
10/09/24 22:00
Lorazepam [Ativan] 2 mg PO HS
10/09/24 22:35
Troponin I Q6H
10/10/24 04:35
Basic Metabolic Panel IN AM
Complete Blood Count/With Diff IN AM
Magnesium IN AM
Troponin I Q6H
10/10/24 08:00
Cyanocobalamin [Vitamin B-12] 1,000 mcg PO DAILY
Doxazosin Mesylate [Cardura] 1 mg PO DAILY
Losartan [Cozaar] 50 mg PO DAILY
Metoprolol Xl [Toprol Xl] 12.5 mg PO DAILY
10/10/24 10:53
Troponin I Q6H
10/12/24 11:00
DC Protocol for Telemetry ONCE
Abnormal Lab Results
10/09/24 10/09/24
07:39 10:40
WBC 3.2 L 10^3/uL
(4.8-10.8)
RBC 3.13 L 10^6/uL
(4.20-5.40)
Hgb 9.4 L D g/dL
(12.0-16.0)
Hct 28.0 L %
(37.0-47.0)
RDW 14.9 H %
(11.5-14.5)
Plt Count 57 L D 10^3/uL
(130-400)
Monocytes % 10.7 H %
(1.7-9.3)
Magnesium 1.2 L mg/dl
(1.6-2.3)
ALT 39 H U/L
(0-35)
Troponin I 0.119 H* ng/ml 0.221 H* D ng/ml
10/09/24 07:39
10/09/24 07:39
Vital Signs
Initial and Last Documented VS:
Initial Vital Signs
Temp Pulse Resp BP Pulse Ox
98.0 F 140 19 151/106 95
10/09/24 07:11 10/09/24 07:11 10/09/24 07:11 10/09/24 07:11 10/09/24 07:11
Last Documented Vital Signs
Temp Pulse Resp BP Pulse Ox
98.2 F 61 16 141/63 98
10/10/24 11:18 10/10/24 11:18 10/10/24 11:18 10/10/24 11:18 10/10/24 11:18
MDM/Problems Addressed
MDM/Problems Addressed:
History and exam consistent with recurrent rapid atrial flutter. Patient evaluate immediately upon arrival and started on treatment, i.e. IV fluids along with Cardizem bolus followed by Cardizem infusion. During Cardizem infusion, patient noted to
become bradycardic with pauses, followed by conversion to normal sinus rhythm. Patient's presenting symptoms all resolved after conversion. However, initial troponin 0.119, which appears to be higher than expected from tachycardia. As such,
repeat troponin ordered. Patient also started on Cardizem 120 mg tablet in ED.
Repeat troponin level noted and discussed with on-call cardiology () who will come and evaluate patient in ED. Pt remains asymptomatic after conversion to NSR
Critical care statement: A total of 40 minutes of critical care time was provided for this patient. This includes management of unstable vital signs, evaluation of the patient at bedside, reviewing the patient's pertinent medical records, discussion
with consultants, review of old EKGs and review of pertinent medical records. This time with separate from time utilized to perform the aforementioned documented procedures
*Pulse Oximetry
SaO2: 95
Oxygen Mode of Delivery: Room air
Patient hypoxic: no
*EKG
Interpreted by ED Provider?: Yes
EKG Intrepretation Date: 10/09/24
Heart Rate: 141
Rate: tachycardiac
Rhythm: atrial flutter
[place]: normal axis
Interval: normal interval
QRS Pattern: normal QRS
*Critical Care Note
Total Time (30-74mins, 75-104mins- exclusive of procedures): 40 min
ED Attending Note
-
Portions of this chart may have been created with voice recognition software.� Occasional wrong word or��sound alike� substitutions may have occurred due to the inherent limitations of voice recognition software.
Discharge Plan
Departure
Patient Disposition: Admit
Date of Disposition: 10/09/24
Time of Disposition: 15:37
Presentation/result/management discussed w/ accepting MD/DO: Hospitalist
Patient with high blood pressure during this ER visit?: Yes
Condition: Fair
Discharge Problem:
Atrial flutter
Interventions
Interventions:
*Risk Screen - Suicide Last Done: 10/09/24 07:11
*General Assessment Last Done: 10/09/24 07:11
*Neglect/Abuse Screening Last Done: 10/09/24 07:11
*ED- Fall Risk Assessment Last Done: 10/09/24 08:03
*ED COVID-19 Vaccine History Last Done: 10/09/24 07:11
*Nursing Disposition Last Done: 10/09/24 18:10
ED- Cardiac Assessment Last Done: 10/09/24 08:04
ED- Pulmonary Assessment Last Done: 10/09/24 08:04
Discharge Date and Time
Discharge Date/Time: 10/09/24 18:12
[2024-10-09] MEDS: CARDIZEM 20 MG IV (07:47)
[2024-10-09] MEDS: ELIQUIS 5 MG PO ×2 (07:48→19:59)
[2024-10-09] MEDS: NSS 250 IV (07:49)
[2024-10-09] MEDS: CARDIZEM 125 IV (07:53)
[2024-10-09 08:12] LABS: ALT (SGPT) 39 U/L (0-35); AST (SGOT) 29 U/L (14-36); Albumin 4.1 g/dl (3.5-5.0); Alkaline Phosphatase 97 U/L (38-126); Blood Urea Nitrogen 11 mg/dl (7-17); Calcium 10.2 mg/dl (8.4-10.2); Carbon Dioxide 24 mmol/L (22-30); Chloride 106 mmol/L (98-107); Estimated Creatinine Clearance 71 ml/min; Glucose 95 mg/dl (70-99); Magnesium 1.2 mg/dl (1.6-2.3); Potassium 4.5 mmol/L (3.5-5.1); Sodium 136 mmol/L (135-145); Total Protein 6.4 g/dl (6.3-8.2); eGFR > 60.00
[2024-10-09 08:22] LABS: Troponin I 0.119 ng/ml
[2024-10-09] MEDS: CARDIZEM CD 120 MG PO (08:32)
[2024-10-09 08:39] LABS: TSH 1.10 uIU/ml (0.47-4.68)
[2024-10-09 09:05] LABS: Hematocrit 28.0 % (37.0-47.0); Hemoglobin 9.4 g/dL (12.0-16.0); Mean Corp Hgb Conc. 33.6 g/dL (33.0-37.0); Mean Corpuscular Volume 89.5 fL (81.0-99.0); Nucleated Red Blood Cells % 0 %; Platelet Count 57 10^3/uL (130-400); Red Cell Dist. Width 14.9 % (11.5-14.5)
[2024-10-09 11:19] LABS: Troponin I 0.221 ng/ml
[2024-10-09] MEDS: MAGNESIUM SULFATE 100 IV (13:01)
--- NOTE | 2024-10-09 15:23 | CON.CAR ---
Addendum entered and electronically signed by Ede Singh DO 10/09/24 21:43:
I saw and examined the patient.
The Broommaking Supervisor's note was reviewed and I agree with the note.
Comment:
Plan:
Patient presented with palpitations and chest tightness and found to be in atrial fibrillation with RVR with heart rates in the 180s on arrival. Was placed on IV Cardizem drip and spontaneously converted to sinus bradycardia in ER. Troponin
resulted at 0.1, 0.2 respectively.
She had chest pain with rapid afib and troponin slightly elevated. She spontaneously converted and chest pain resolved.
Continue to trend troponin until it peaks
Currently options are limited given her thrombocytopenia, anemia with recent transfusion and receiving chemo
Echo performed urgently and EF is preserved with no wall motion changes
Transition from CCB to beta beatriz
Trend trop until it peaks.
Cont medical therapy
Eventual consideration for ischemic eval pending troponin and once completed chemo and plt ct improved.
additional risk factors include moderate coronary artery calcifications by CT scan
Cont Eliquis
TSH WNL
Discussed with patient and family at bedside
Original Note:
Consultation
Consultation Request
Date/Time Consultation Performed: 10/09/24
Requesting Provider: Dr. Sesay
Performing Provider: Radha Reeves PA-C for Dr. Singh
Reason for Consultation: afib, elevated troponin
Medical History
-
Chief Complaint: palpitations
History of Present Illness:
Patient is a 79-year-old female with past medical history of Stage 3A non-small cell lung cancer of left lung status post left lower lobe lingular wedge resection and lymph node resection 05/2024, currently on chemotherapy with carbo/gem, history of
breast cancer, paroxysmal atrial fibrillation on chronic anticoagulation with Eliquis who had been on procainamide and diltiazem in the past, however felt awful on these medications. Both were stopped in 2016 due to her reaction. She then called
the office several weeks ago complaining of recurrent palpitations since starting her chemotherapy and she was started back on diltiazem with similar response of feeling ill. Diltiazem was again stopped. She reports she woke up from sleep this
morning with heart pounding followed by symptoms of indigestion and pressure between her shoulders and came to the ER for evaluation. On arrival was in rapid A-fib with heart rates in the 180s. She was placed on IV Cardizem drip and spontaneously
converted to sinus rhythm. She was given p.o. Cardizem 120 mg daily. Troponin then resulted back as elevated at 0.1 with subsequent 0.2. Patient reports since her heart rate was brought down, her symptoms of chest pressure resolved. She has been
compliant with her Eliquis aside from dose this morning. Cardiology consulted for evaluation. Daughter at bedside relays that she received a transfusion yesterday. Platelets are 57,000 in ER today
PMH:
Stage 3 A non-small cell lung cancer of left lung status post left lower lobe lingular wedge resection and lymph node resection 05/2024, currently on chemotherapy with carbo/gem (1 additional cycle), with plans for upcoming immunotherapy (imfinzi)
Anemia/thrombocytopenia
History of L breast cancer status postlumpectomy, XRT, chemotherapy
Paroxysmal atrial fibrillation
Chronic anticoagulation with Eliquis
Hyperlipidemia with history of statin intolerance, Zetia intolerance, Repatha intolerance, Nexletol intolerance
Coronary artery calcifications by CT scan, moderate
Peripheral neuropathy
Former smoker
Past Medical History
Past Medical History: Other (in HPI)
Social History
Tobacco: Former Smoker
Personal:
Living: With Family
Allergies / Home Medications
Allergy/AdvReac Type Severity Reaction Status Date / Time
vancomycin Allergy Intermediate Hives Verified 10/09/24 07:28
Antihistamines - Alkylamine Allergy VERY DROWSY Verified 10/09/24 07:28
atorvastatin calcium (From Allergy Myalgias Verified 10/09/24 07:28
Lipitor)
cyclobenzaprine (From Allergy BREATHING Verified 10/09/24 07:28
Flexeril) PROBLEMS
escitalopram oxalate (From Allergy Severe Verified 10/09/24 07:28
Lexapro) Headache
gabapentin Allergy Headache Verified 10/09/24 07:28
hydrochlorothiazide Allergy Unknown Verified 10/09/24 07:28
hydromorphone HCl (From Allergy Severe Verified 10/09/24 07:28
Dilaudid) Anxiety
metoprolol succinate (From Allergy Jittery, Verified 10/09/24 07:28
Toprol XL) insomnia
morphine Allergy slows Verified 10/09/24 07:28
breathing
too much
Sulfa (Sulfonamide Allergy Hives Verified 10/09/24 07:28
Antibiotics)
Penicillins AdvReac yeast Verified 10/09/24 07:28
infection
�Medication �Instructions �Recorded �Confirmed �Type
lorazepam 1 mg tablet 1 mg PO TID Mental Health/Anxiety 07/07/16 10/09/24 History
lorazepam 2 mg tablet 2 mg PO HS Sleep 01/05/17 10/09/24 History
famotidine 20 mg tablet 20 mg PO BID Gastrointestinal issue 09/15/20 10/09/24 History
losartan 100 mg tablet (Cozaar) 100 mg PO DAILY Blood pressure #0 05/04/22 10/09/24 Rx
tabs
acetaminophen 325 mg tablet 650 mg PO QIDPRN PRN mild pain 08/01/24 10/09/24 History
(Tylenol)
doxazosin 1 mg tablet 1 mg PO DAILY 08/01/24 10/09/24 History
apixaban 5 mg tablet (Eliquis) 5 mg PO BID 10/09/24 10/09/24 History
cyanocobalamin (vitamin B-12) 1,000 mcg PO DAILY 10/09/24 10/09/24 History
1,000 mcg tablet
diltiazem HCl 120 mg 120 mg PO DAILY #20 caps 10/09/24 Rx
capsule,extended release 24 hr
(Cardizem CD)
Review of Systems
-
History Source: Patient and Family
All other systems: Negative unless noted
Physical Exam
Vital Signs
Temp Pulse Resp BP Pulse Ox
98.0 F 55 20 142/66 97
10/09/24 07:11 10/09/24 14:30 10/09/24 14:30 10/09/24 14:00 10/09/24 14:30
Lab Results
10/09/24 07:39
10/09/24 07:39
Troponin I 0.221 ng/ml H* D 10/09/24 10:40
Physical Exam
General: No Apparent Distress and Comfortable
HEENT: Normocephalic, Anicteric and Moist Mucous Membranes
Respiratory: Clear and Non Labored Respirations
Cardiac: S1/S2, Regular Rhythm and Other ([place])
GI: Soft, Non Tender, Non Distended and Normal Bowel Sounds
Musculoskeletal: No Clubbing, No Cyanosis and Edema (Trace of bilateral lower extremity)
Skin: Warm and Dry
Neuro: AO x 3
Impression / Plan
-
Primary regional vice president life sales: Dr. Jesenia Newell
Assessment:
Palpitations
Chest tightness
Atrial fibrillation with rapid ventricular response status post spontaneous conversion to sinus rhythm/sinus [place] in ER
Elevated troponin
Stage 3 A non-small cell lung cancer of left lung status post left lower lobe lingular wedge resection and lymph node resection 05/2024, currently on chemotherapy with carbo/gem (1 additional cycle), with plans for upcoming immunotherapy (imfinzi)
Anemia/thrombocytopenia
History of L breast cancer status postlumpectomy, XRT, chemotherapy
Paroxysmal atrial fibrillation
Chronic anticoagulation with Eliquis
Hyperlipidemia with history of statin intolerance, Zetia intolerance, Repatha intolerance, Nexletol intolerance
Coronary artery calcifications by CT scan, moderate
Peripheral neuropathy
Former smoker
ECHO 10/09/24: EF 65 to 70%, mild TR
Plan:
- Patient presented with palpitations and chest tightness and found to be in atrial fibrillation with RVR with heart rates in the 180s on arrival. Was placed on IV Cardizem drip and spontaneously converted to sinus bradycardia in ER
- Troponin resulted at 0.1, 0.2 respectively. No chest discomfort since heart rate improved
- Trend troponin to peak
- She has prior moderate coronary artery calcifications by CT scan, and may have underlying CAD with rapid A-fib acting as stress test of sorts
- Difficult situation. Would not add aspirin/Plavix at this time and would attempt to manage medically in the setting of ongoing chemotherapy and anemia/thrombocytopenia requiring intermittent transfusions (patient reportedly had transfusion 10/07
per daughter for hgb 7.8).
- In place of Cardizem which patient has responded poorly to in the past, would plan to retry on Toprol 12.5 mg. She is listed as having reaction to metoprolol of 'jittery, insomnia' however upon speaking to her and family she does not recall this
and is willing to retry due to not tolerating Cardizem in the recent past. she has known bradycardia in SR in past
-continue eliquis
-echo with results as above, EF preserved
-TSH WNL
-Could consider for eventual ischemic evaluation or additional treatments of atrial fibrillation including ablation pending clinical progress from oncologic standpoint
- Discussed with patient and family at bedside
Data Reviewed
-
EKG: Tracing Personally Visualized and interpreted
Medical Tests (Nuc Med, Echo etc): Report Reviewed by me
Labs: Labs Reviewed by me
Old Records: Reviewed
--- NOTE | 2024-10-09 16:20 | W.PN.UPDATE ---
Addendum entered and electronically signed by Tila Palmer MD 10/22/24 13:31:
Chemotherapy induced pancytopenia
-monitor CBC
Original Note:
Update Note
Progress Note Update
This is an addendum to H&P written by Resident Physician Dr. Velasquez
I saw and examined the patient.
The SALESPERSON BURIAL NEEDS's note was reviewed and I agree with the note.
Comment:
Ms. Mariel Barney is a 79 yo woman with hx lung cancer undergoing chemotherapy, paroxysmal afib on Eliquis (with difficulty tolerating rate controlling medications int he past) reports to the ER with report of palpitations and pressure between her
shoulders. Patient recently started having palpitations as outpatient after starting chemotherapy. Trialed again on Diltazem but didn't tolerate.
Patient was found to be in afib with RVR on arrival s/p Diltiazem and converted to sinus rhythm.
Triage VS: T 98, P 140, RR 19, BP 151/106, Spo2 95%
Initial EKG with aflutter @ 141
On exam patient is awake, alert, in no distress; CV: S1, S2, RRR; chest clear, chronic LLE swelling mild.
LABS: WBC 3.2, Hg 9.4, PLT 57, Na 136, K+ 4.5, Cl 106, CO2 24, Cr 0.8, Glucose 95, Ca 10.2, Mag 1.2, T. Bili 0.9, AST 29, ALT 39, Trop 0.119 --> 0.221
TSH 1.10
TTE 10/09/24
SUMMARY
1. Normal left chamber size myocardial thickness and systolic function. Left ventricular ejection fraction 65 to 70%.
2. Mild tricuspid regurgitation.
3. No prior echo for comparison.
Aflutter with RVR
-s/p IV Diltiazem and converted to sinus rhythm
-admit to telemetry
-s/p TTE with finding of LVEF 65-70%; mild TR, no WMA
-appreciate Cardiology consult. Difficult situation as patient does not tolerate rate controlling medications well. Plan is to trial Metoprolol XL
-INSURANCE OFFICE SUPERVISOR Eliquis
Essential HTN
-INSURANCE OFFICE SUPERVISOR Doxazosin daily
-1/2 dose Losartan to make room for Metoprolol dosing
-can resume full dose Losartan based on BP's tomorrow
Anxiety
-INSURANCE OFFICE SUPERVISOR Standing Ativan
Non ischemic myocardial injury in setting of RVR
-Troponin increase to 0.221
-continue to trend
-appreciate Cardiology, could consider ischemic evaluation as outpatient
Lung Cancer
-undergoing chemotherapy
Hypomagnesemia
-replete
DVT PPx INSURANCE OFFICE SUPERVISOR Eliquis
FULL CODE
76 minutes spent on patient care
--- NOTE | 2024-10-09 16:33 | HPS.HSE ---
Family Physician
-
Family Physician: [facility]
Chief Complaint
-
Palpitation
History of Present Illness
This is a 79-year-old female with past medical history of breast cancer s/p lumpectomy, XRT, chemotherapy, non-small cell lung cancer s/p left lower lobe lingula wedge resection currently on chemotherapy, paroxysmal atrial fibrillation on Eliquis,
essential hypertension, GERD, anxiety who presents to the ED complaining of palpitation. The patient reports since she started the chemotherapy sessions 2 months ago she has been experiencing intermittent palpitation. She reports she woke up this
morning with a pounding sensation in her chest. In addition she reports pain in between her shoulder blades. Due to ongoing palpitation, she decided to call EMS.At bedside, she denies chest pain, denies shortness of breath, denies fever, denies
chills. Pertinent to history, patient with a history of paroxysmal atrial fibrillation. She has been on procainamide and diltiazem in the past but she reports she did not tolerate these medications. After starting chemotherapy, she contacted her
screen making supervisor due to ongoing palpitations, and was restarted on diltiazem. Patient reports did not tolerate medication, and then she decided to stop medication.
In addition, patient's currently on chemotherapy. Follows at [facility]. She was sent to the ED yesterday for blood transfusion after hemoglobin was noted to be less than 8.
Upon presentation to the ED, blood pressure 151/106, pulse 140, respiratory 19, O2 sat 95% on room air.
Medical History
Past Medical History
Past Medical History: Reports Other (Stage 3 A non-small cell lung cancer of left lung status post left lower lobe lingular wedge resection and lymph node resection 05/2024, currently on chemotherapy with gemcitabine, carboplatin,Spinal stenosis,
pulmonary nodules, former tobacco user, paroxysmal atrial fibrillation on Eliquis)
Additional Past Medical History:
Spinal stenosis, pulmonary nodules, former tobacco user, paroxysmal atrial fibrillation on Eliquis, hypertension, hyperlipidemia, breast cancer, GERD, anxiety
Past Surgical History: Reports Other
Social History
Tobacco: Former Smoker
Alcohol: None
Living: With Family
Family History
Family History: Not pertinent
Allergies / Home Medications
Allergies reflects when Allergies were last updated in [employer].
Home Medications with original date entered in [employer]
Allergy/Medication List:
Allergies
Allergy/AdvReac Type Severity Reaction Status Date / Time
Antihistamines - Alkylamine Allergy VERY DROWSY Verified 10/09/24 07:28
atorvastatin calcium (From Allergy Myalgias Verified 10/09/24 07:28
Lipitor)
cyclobenzaprine (From Allergy BREATHING Verified 10/09/24 07:28
Flexeril) PROBLEMS
escitalopram oxalate (From Allergy Severe Verified 10/09/24 07:28
Lexapro) Headache
gabapentin Allergy Headache Verified 10/09/24 07:28
hydrochlorothiazide Allergy Unknown Verified 10/09/24 07:28
hydromorphone HCl (From Allergy Severe Verified 10/09/24 07:28
Dilaudid) Anxiety
metoprolol succinate (From Allergy Jittery, Verified 10/09/24 07:28
Toprol XL) insomnia
morphine Allergy slows Verified 10/09/24 07:28
breathing
too much
Penicillins Allergy yeast Verified 10/09/24 16:59
infection
Sulfa (Sulfonamide Allergy Hives Verified 10/09/24 07:28
Antibiotics)
vancomycin Allergy Hives Verified 10/09/24 16:59
Home Medications
lorazepam 1 mg tablet 1 mg PO TID Mental Health/Anxiety 07/07/16
lorazepam 2 mg tablet 2 mg PO HS Sleep 01/05/17
famotidine 20 mg tablet 20 mg PO BID Gastrointestinal issue 09/15/20
losartan 100 mg tablet (Cozaar) 100 mg PO DAILY Blood pressure #0 tabs 05/04/22
acetaminophen 325 mg tablet (Tylenol) 650 mg PO QIDPRN PRN mild pain 06/12/25
doxazosin 1 mg tablet 1 mg PO DAILY 08/01/24
apixaban 5 mg tablet (Eliquis) 5 mg PO BID 10/09/24
cyanocobalamin (vitamin B-12) 1,000 mcg tablet 1,000 mcg PO DAILY 10/09/24
diltiazem HCl 120 mg capsule,extended release 24 hr (Cardizem CD) 120 mg PO DAILY #20 caps 10/09/24
Review of Systems
-
A 12 point ROS was completed and negative except as noted: Yes
Constitutional: Reports Other (All review of systems obtained and negative except as documented in HPI)
Physical Exam
Vital Signs
Vital Signs
Temp Pulse Resp BP Pulse Ox
98.0 F 55 20 142/66 97
10/09/24 07:11 10/09/24 14:30 10/09/24 14:30 10/09/24 14:00 10/09/24 14:30
Physical Exam
General: Well Developed and No Apparent Distress
HEENT: NormoCephalic
Respiratory: Clear
Cardiac: S1/S2 and Regular Rhythm
GI: Soft, Non Tender, Non Distended and Normal Bowel Sounds
Musculoskeletal: No Edema
Neuro: AO x 3
Psych: Calm
Laboratory Results
-
10/09/24 07:39
10/09/24 07:39
Laboratory Results
Total Bilirubin 0.9 mg/dl (0.2-1.3) 10/09/24 07:39
AST 29 U/L (14-36) 10/09/24 07:39
ALT 39 U/L (0-35) H 10/09/24 07:39
Alkaline Phosphatase 97 U/L (38-126) 10/09/24 07:39
Troponin I 0.221 ng/ml H* D 10/09/24 10:40
Impression/Plan
-
Assessment/plan
#Atrial Flutter with RVR
#Hx of Paroxysmal atrial fibrillation on Eliquis
-EKG on presentation: ATRIAL FLUTTER WITH 2:1 A-V CONDUCTION
-S/p Cardizem gtt in ED
-Now in NSR
-Cardiology input appreciated
-Plan is to trial Metoprolol XL in the AM
-Echocardiogram 10/09/2024- No regional wall motion abnormalities. Ejection fraction is 65-70% by visual assesment. Left ventricular cavity size is 4.50 cm which is normal. There is mild concentric left ventricular hypertrophy. Normal LV diastolic
function.
-Continue anticoagulation with Eliquis
#Nonischemic myocardial injury in the setting of Aflutter with RVR
-Troponin on presentation 0.119>>0.221,
-Trend Troponin
-Denies acute chest pain
-Cards input appreciated, plan for ischemic eval outpatient
#Anemia with recent transfusion yesterday
-S/p 1 unit PRBC yesterday 10/08
-Monitor CBC
-Transfuse for hemoglobin less than 8
#Thrombocytopenia
-Likely multifactorial
-No overt bleeding currently
-Monitor CBC
#Hypomagnesemia
-Replete
#Non-small cell lung cancer
-S/p left lower lobe lingula wedge resection and lymph node resection
-Currently on chemotherapy with gemcitabine and carboplatin
-Follows [facility]
#History of breast cancer
-S/p lumpectomy, XRT
#Hypertension
-Continue losartan at lower dose, doxazosin
#GERD
-Continue famotidine
#Anxiety
-Continue Lorazepam
CODE STATUS full code
DVT prophylaxis Eliquis
[2024-10-09] MEDS: ATIVAN 1 MG PO ×2 (17:13→18:38)
[2024-10-09] MEDS: COZAAR 50 MG PO (17:13)
[2024-10-09] MEDS: MAGNESIUM SULFATE 50 IV (17:14)
[2024-10-09 18:04] LABS: Troponin I 0.237 ng/ml
[2024-10-09] MEDS: PEPCID 20 MG PO (19:59)
[2024-10-09] MEDS: FLUSH (NSS) 1 FLUSH IV (20:00)
[2024-10-09 23:11] LABS: Troponin I 0.161 ng/ml
[2024-10-10 03:58] VITALS: BP 139/65
[2024-10-10 05:05] LABS: Hematocrit 24.1 % (37.0-47.0); Hemoglobin 8.0 g/dL (12.0-16.0); Mean Corp Hgb Conc. 33.2 g/dL (33.0-37.0); Mean Corpuscular Volume 89.6 fL (81.0-99.0); Nucleated Red Blood Cells % 0 %; Platelet Count 48 10^3/uL (130-400); Red Cell Dist. Width 14.8 % (11.5-14.5)
[2024-10-10 05:33] LABS: Troponin I 0.104 ng/ml
[2024-10-10 05:44] LABS: Blood Urea Nitrogen 13 mg/dl (7-17); Calcium 9.5 mg/dl (8.4-10.2); Carbon Dioxide 26 mmol/L (22-30); Chloride 107 mmol/L (98-107); Estimated Creatinine Clearance 70 ml/min; Glucose 86 mg/dl (70-99); Magnesium 1.9 mg/dl (1.6-2.3); Potassium 4.6 mmol/L (3.5-5.1); Sodium 134 mmol/L (135-145); eGFR > 60.00
[2024-10-10 07:40] VITALS: BMI 35.3
[2024-10-10] MEDS: VITAMIN B-12 1000 MCG PO (07:40)
[2024-10-10] MEDS: CARDURA 1 MG PO (07:40)
[2024-10-10] MEDS: PEPCID 20 MG PO (07:40)
[2024-10-10] MEDS: ELIQUIS 5 MG PO (07:40)
[2024-10-10] MEDS: TOPROL XL 12.5 MG PO (07:40)
[2024-10-10] MEDS: COZAAR 50 MG PO (07:40)
[2024-10-10] MEDS: ATIVAN 1 MG PO ×3 (07:40→16:19)
[2024-10-10 08:05] VITALS: BP 154/68
--- NOTE | 2024-10-10 10:54 | CM ---
CM reviewed chart, patient seen bedside with daughter, initial assessment completed. Patient resides with her partner in a two story home, bedroom on second floor, one small step to enter. Patient has a walker and cane in the home, has had VN in the
past (after lung surgery) unsure agency, denies SNF. Patient current with [facility] for chemotherapy. Patient PCP [facility], pharmacy [facility] in [place], [place], confirms prescription coverage. Patient denies insecurities at home. Patient confirms
transportation home when stable for d/c. Consult received for Advance Directive, patient reports her daughter has POA. CM will continue to follow for all discharge planning needs.
Plan; home no needs likely
[2024-10-10 11:18] VITALS: BP 141/63
[2024-10-10 11:35] LABS: Troponin I 0.075 ng/ml
--- NOTE | 2024-10-10 14:59 | W.PN.CARDCBS ---
Addendum entered and electronically signed by Cas Darling MD 10/10/24 16:17:
I saw and examined the patient.
The Auxiliary Power Equipment Operator's note was reviewed and I agree with the note.
Comment:
GEN: No distress, awake, Ox3
HEENT: supple, anicteric, mmm
LUNGS: CTA, no wheezes/rales
CV: Reg, S1/S2, 1/6 syst LSB, no gallop
ABD: soft, BS+, NT/ND
EXT: No edema
NEURO: Gross non-focal
SKIN: No rash
Plan:
Remains in sinus rhythm. Will start Toprol 12.5 mg daily.
Continue Eliquis. Echo with preserved ejection fraction and no significant valve disease.
Would consider ischemic evaluation after she is finished chemotherapy. If she has further or new unstable symptoms she should call we would consider stress testing earlier.
Continue to follow hemoglobin and platelet count. She does have thrombocytopenia with a platelet count of 48,000
Original Note:
Today's Communication / Plan
-
Stop outpatient Cardizem and start Toprol XL
Cont Eliquis
Impression / Plan
-
Primary trauma surgeon: Dr. Jesenia Newell
Assessment:
Admitted with palpitations and elevated Troponin 10/10/24
Palpitations
Chest tightness
Atrial fibrillation with rapid ventricular response status post spontaneous conversion to sinus rhythm/sinus [place] in ER
Elevated troponin
Stage 3 A non-small cell lung cancer of left lung status post left lower lobe lingular wedge resection and lymph node resection 05/2024, currently on chemotherapy with carbo/gem (1 additional cycle), with plans for upcoming immunotherapy (imfinzi)
Anemia/thrombocytopenia
History of L breast cancer status postlumpectomy, XRT, chemotherapy
Paroxysmal atrial fibrillation
Chronic anticoagulation with Eliquis
Hyperlipidemia with history of statin intolerance, Zetia intolerance, Repatha intolerance, Nexletol intolerance
Coronary artery calcifications by CT scan, moderate
Peripheral neuropathy
Former smoker
ECHO 10/09/24: EF 65 to 70%, mild TR
Plan:
-Patient presented with palpitations and chest tightness and found to be in atrial fibrillation with RVR with heart rates in the 180s on arrival. Was placed on IV Cardizem drip and spontaneously converted to sinus bradycardia in ER
-Troponin peaked at 0.237 and was managed as a nonischemic myocardial injury Troponin elevation.
-Patient will need an eventual ischemic evaluation once she has completed her chemotherapy. She has prior moderate coronary artery calcifications by CT scan, and may have underlying CAD with rapid A-fib acting as stress test of sorts
-Echo without WMA and EF preserved
-Remains in SR on tele check by me on 10/10/24
-Outpatient dose of Cardizem CD was stopped in favor of Toprol XL 12.5 mg daily
-Outpatient dose of Eliquis 5 mg BID has been continued
-Patient with anemia/thrombocytopenia requiring intermittent transfusions (patient reportedly had transfusion 10/07 per daughter for hgb 7.8) in the setting of chemotherapy.
-Patient is stable for d/c to home, TT with hospitalist attending
Progress Note - Foot Caster
Subjective
Date of Service: October 10, 2024
Feels much better, wants to go home
Objective
Labs:
10/10/24 04:35
10/10/24 04:35
Labs
Hgb 8.0 g/dL (12.0-16.0) L 10/10/24 04:35
Hct 24.1 % (37.0-47.0) L 10/10/24 04:35
Plt Count 48 10^3/uL (130-400) L 10/10/24 04:35
Sodium 134 mmol/L (135-145) L 10/10/24 04:35
Potassium 4.6 mmol/L (3.5-5.1) 10/10/24 04:35
BUN 13 mg/dl (7-17) 10/10/24 04:35
Creatinine 0.8 mg/dL (0.6-1.0) 10/10/24 04:35
Glucose 86 mg/dl (70-99) 10/10/24 04:35
Troponins
10/09/24 10/09/24 10/09/24
07:39 09:14 10:40
Troponin I 0.119 H* Cancelled 0.221 H* D
10/09/24 10/09/24 10/10/24
17:09 22:35 04:35
Troponin I 0.237 H* 0.161 H* D 0.104 H* D
10/10/24
10:53
Troponin I 0.075 H* D
Vital Signs and I&O:
Vital Signs
Temp Pulse Resp BP Pulse Ox
98.2 F 61 16 141/63 98
10/10/24 11:18 10/10/24 11:18 10/10/24 11:18 10/10/24 11:18 10/10/24 11:18
Vital Signs
Temp Pulse Resp BP Pulse Ox
98.2 F 61 16 141/63 98
10/10/24 11:18 10/10/24 11:18 10/10/24 11:18 10/10/24 11:18 10/10/24 11:18
Intake & Output
10/08/24 10/09/24 10/10/24 10/11/24
06:59 06:59 06:59 06:59
Intake Total 240 / 240
Balance 240 / 240
Physical Exam
Physical Exam
GEN: NAD. AAOx3
LUNGS: RA. No audible wheeze
CV: SR on tele
[2024-10-10 15:00] VITALS: BP 172/80
--- NOTE | 2024-10-10 16:13 | W.DCSUMMARY ---
Discharge Summary
Discharge Data
Date of Admission: 10/09/24
Date of Discharge: 10/10/24
-
Pending Results: No
Hospital Course
Attending physician on day of discharge:
Patricia Us MD
Admission diagnosis:
Atrial flutter with RVR
Discharge diagnosis:
A-fib/a flutter with RVR
Secondary diagnoses:
Non-small cell lung cancer
Anemia
Thrombocytopenia
Hypertension
Anxiety
GERD
Consultations:
Cardiology
Procedures:
None
Hospital course:
79 female with NSCLC on chemo, PAF on Eliquis, presenting with palpitations. In ED she was found to be in a flutter with RVR, heart rate 140. She received Cardizem via IV in the ED and spontaneous converted to normal sinus rhythm and had
resolution of her symptoms. Cardiology was consulted, and they performed an echocardiogram, see below. She was started on low-dose Toprol and her home Eliquis was continued. She was discharged in stable condition with outpatient follow-up.
Diagnostic findings:
Echocardiogram: 1. Normal left chamber size myocardial thickness and systolic function. Left ventricular ejection fraction 65 to 70%.
2. Mild tricuspid regurgitation.
3. No prior echo for comparison.
Physical exam on discharge:
Gen: NAD
HEENT: PERRLA, EOMI, MMM, neck supple
Cards: RRR, no M/G/R
Resp: Lungs CTAB, no W/R/R
GI: soft, NT/ND/NABS
MSK: No edema
Skin: warm and dry, no rash, ulcer or lesions
Heme: No LAD
Psych: Calm
Neuro: AAOx3
Discharge disposition:
Home
Discharge Plan
-
Patient Disposition: Home (Routine Discharge)
Discharge Diagnosis/Procedures: Atrial Fibrillation with Rapid Ventricular Response
Diet: Regular
Activity: As tolerated
Instructions: Atrial fibrillation and atrial flutter - ED (DC)
Referrals:
[facility] Jung MD [Family Provider, Family Practice]
Jesenia Newell MD [Active, Cardiology] - 11/08/24 1:20 pm
Referral Note: You are scheduled to see Dr. Jesenia Newell's physician nutrition services assistant, Catherine, at the [place] office on 11/08/24 at 1:20 PM. Please call [phone] if you need to reschedule.
Additional Discharge Medication Instructions: Stop Cardizem and Start Toprol XL instead
Prescriptions:
New
metoprolol succinate 25 mg Tablet Extended Release 24 Hr
12.5 mg PO DAILY Qty: 30 11RF
losartan 50 mg Tablet
50 mg PO DAILY Qty: 30 0RF
Continued
lorazepam 1 MG tablet
1 mg PO TID
lorazepam 2 MG tablet
2 mg PO HS
famotidine 20 MG tablet
20 mg PO BID
acetaminophen [Tylenol] 325 mg Tablet
650 mg PO QIDPRN PRN (Reason: mild pain)
doxazosin 1 mg Tablet
1 mg PO DAILY
cyanocobalamin (vitamin B-12) 1,000 mcg Tablet
1,000 mcg PO DAILY
Eliquis 5 mg Tablet
5 mg PO BID
Discontinued
losartan [Cozaar] 100 MG tablet
100 mg PO DAILY Qty: 0 0RF
Discharge Orders:
Discharge Patient (As Directed); Ordered 10/10/24
Ordered By: Patricia Us
Discharge Date and Time
Print Language: AZERI
--- NOTE | 2024-10-15 11:56 | PN.CDI ---
CDI
- -
CDI:
Physician Documentation Request
Admit Date: 10/09/24 16:41
Dear Doctor Magen,
Patient admitted for atrial fibrillation.
H&P: 'Anemia with recent transfusion yesterday -S/p 1 unit PRBC yesterday 10/08...Thrombocytopenia -Likely multifactorial...Currently on chemotherapy with gemcitabine and carboplatin'
Laboratory Tests
10/09/24 10/10/24
07:39 04:35
WBC 3.2 L 4.7 L
RBC 3.13 L 2.69 L
Hgb 9.4 L D 8.0 L
Plt Count 57 L D 48 L
Based on the above, could you clarify in the progress notes, the appropriate diagnosis, if significant, that supports the above abnormalities and additional evaluation, monitoring and/or treatment rendered:
Chemotherapy induced pancytopenia
Pancytopenia
Other
Use of terms such as suspected, likely, concern for, or probable (associated with a specific diagnosis that is being evaluated, monitored, or treated as if it exists) are acceptable and can be coded in the inpatient setting, when documented at the
time of discharge.
Thank you,
Ignacia Jerome RN, BSN
CDI Specialist
Available via [employer] text
Please use your independent medical judgment in providing your response.
== END 2024-10-10 16:57 | disposition home or self-care (01) | DRG 308 ==
LOC: 4 WEST ACU 16:41
PROVIDERS: Student in an Organized Health Care Education/Training Program; ADMITTING PHYSICIAN Student in an Organized Health Care Education/Training Program; ATTENDING PHYSICIAN Internal Medicine; CONSULT PHYSICIAN Nuclear Medicine Nuclear Cardiology; EMERGENCY PHYSICIAN Emergency Medicine; FAMILY PHYSICIAN Family Medicine
DX: I48.0 Paroxysmal atrial fibrillation (principal); D61.810 Antineoplastic chemotherapy induced pancytopenia; C34.92 Malignant neoplasm of unspecified part of left bronchus or lung; I5A Non-ischemic myocardial injury (non-traumatic); I48.92 Unspecified atrial flutter; M54.9 Dorsalgia, unspecified; I10 Essential (primary) hypertension; I07.1 Rheumatic tricuspid insufficiency; F41.9 Anxiety disorder, unspecified; E83.42 Hypomagnesemia; D69.6 Thrombocytopenia, unspecified; K21.9 Gastro-esophageal reflux disease without esophagitis; M48.00 Spinal stenosis, site unspecified; E78.5 Hyperlipidemia, unspecified; I25.10 Atherosclerotic heart disease of native coronary artery without angina pectoris; G62.9 Polyneuropathy, unspecified; T45.1X5A Adverse effect of antineoplastic and immunosuppressive drugs, initial encounter; Y92.9 Unspecified place or not applicable; Z92.21 Personal history of antineoplastic chemotherapy; Z90.2 Acquired absence of lung [part of]; Z79.01 Long term (current) use of anticoagulants; Z85.3 Personal history of malignant neoplasm of breast; Z85.118 Personal history of other malignant neoplasm of bronchus and lung; Z88.1 Allergy status to other antibiotic agents; Z88.5 Allergy status to narcotic agent; Z88.0 Allergy status to penicillin; Z88.2 Allergy status to sulfonamides; Z88.8 Allergy status to other drugs, medicaments and biological substances; Z87.891 Personal history of nicotine dependence
CPT/HCPCS: 36415; 80048; 80053; 83735; 84443; 84484; 85025; 86850; 86900; 86901; 86920; 93005; 93306; 96361; 96365; 96375; 96376; 99285

== ENCOUNTER → 2024-10-14 10:25 | Outpatient (REF) | payer MEDICARE, SELFPAY ==
[2024-10-14 12:02] LABS: Hematocrit 25.7 % (37.0-47.0); Hemoglobin 8.2 g/dL (12.0-16.0); Mean Corp Hgb Conc. 31.9 g/dL (33.0-37.0); Mean Corpuscular Volume 93.1 fL (81.0-99.0); Nucleated Red Blood Cells % 0 %; Platelet Count 148 10^3/uL (130-400); Red Cell Dist. Width 15.7 % (11.5-14.5)
[2024-10-14 12:27] LABS: ALT (SGPT) 31 U/L (0-35); AST (SGOT) 26 U/L (14-36); Albumin 4.1 g/dl (3.5-5.0); Alkaline Phosphatase 89 U/L (38-126); Blood Urea Nitrogen 14 mg/dl (7-17); Calcium 9.5 mg/dl (8.4-10.2); Carbon Dioxide 27 mmol/L (22-30); Chloride 104 mmol/L (98-107); Glucose 92 mg/dl (70-99); Potassium 4.9 mmol/L (3.5-5.1); Sodium 135 mmol/L (135-145); Total Protein 6.2 g/dl (6.3-8.2); eGFR 58.02
== END ==
LOC: REG 10:25
PROVIDERS: ATTENDING PHYSICIAN Internal Medicine Hematology & Oncology; FAMILY PHYSICIAN Family Medicine
DX: C50.912 Malignant neoplasm of unspecified site of left female breast (principal); R91.1 Solitary pulmonary nodule; C34.12 Malignant neoplasm of upper lobe, left bronchus or lung
CPT/HCPCS: 36415; 80053; 85025

== ENCOUNTER → 2024-10-22 11:33 | Outpatient (REF) | payer MEDICARE, SELFPAY ==
[2024-10-22 13:12] LABS: Hematocrit 27.8 % (37.0-47.0); Hemoglobin 9.0 g/dL (12.0-16.0); Mean Corp Hgb Conc. 32.4 g/dL (33.0-37.0); Mean Corpuscular Volume 93.9 fL (81.0-99.0); Nucleated Red Blood Cells % 0 %; Platelet Count 396 10^3/uL (130-400); Red Cell Dist. Width 18.0 % (11.5-14.5)
[2024-10-22 13:53] LABS: ALT (SGPT) 24 U/L (0-35); AST (SGOT) 25 U/L (14-36); Albumin 4.2 g/dl (3.5-5.0); Alkaline Phosphatase 88 U/L (38-126); Blood Urea Nitrogen 9 mg/dl (7-17); Calcium 10.3 mg/dl (8.4-10.2); Carbon Dioxide 29 mmol/L (22-30); Chloride 104 mmol/L (98-107); Glucose 80 mg/dl (70-99); Potassium 4.8 mmol/L (3.5-5.1); Sodium 136 mmol/L (135-145); Total Protein 6.5 g/dl (6.3-8.2); eGFR > 60.00
== END ==
LOC: REG 11:33
PROVIDERS: ATTENDING PHYSICIAN Internal Medicine Hematology & Oncology; FAMILY PHYSICIAN Family Medicine
DX: C50.912 Malignant neoplasm of unspecified site of left female breast (principal); R91.1 Solitary pulmonary nodule; C34.12 Malignant neoplasm of upper lobe, left bronchus or lung
CPT/HCPCS: 36415; 80053; 85025

== ENCOUNTER 2024-10-27 18:26 | Emergency (ER) | payer MEDICARE, SELFPAY ==
[2024-10-27 18:30] VITALS: BP 204/89
[2024-10-27 20:28] VITALS: BMI 36.7
[2024-10-27 20:32] VITALS: BP 177/68
[2024-10-27 21:00] VITALS: BP 164/72
--- NOTE | 2024-10-27 21:08 | ED.GENMED ---
History of Present Illness
General
Chief Complaint: Abdominal Symptoms
Time Seen by Provider: 10/27/24 20:11
History of Present Illness
History of Present Illness:
79-year-old female with history of lung CA on chemotherapy presenting for constipation. Patient reports her last bowel movement was on Monday, 5 days ago. The next day, she had her chemotherapy treatment and is since been constipated. Has had
constipation with her chemotherapy in the past, however not to this extent. She notes some lower abdominal discomfort without any vomiting. Denies fever. She has tried stool softeners and milk of magnesia without significant relief. Denies
additional acute medical complaints
Past History
Past History
ED Past Medical History: Arrthythmia (Paroxysmal atrial fibrillation), Cancer (Breast cancer), HTN, Psychiatric and Other (Anemia)
ED Past Surgical History: Appendectomy and Gynecological
Social History
Tobacco: Smoker
Alcohol: None
Drug: None
Living: with family
Employment: Retired
Family History
Family History: Other (Noncontributory)
Phy Exam
Physical Exam
Physical Exam:
General: Well-appearing, no clinical signs of dehydration, nontoxic and in no acute distress
HEENT: protecting airway
Neck: appears supple
CV: Normal heart rate
Resp: No accessory muscle use, no increased work of breathing, lungs clear to auscultation bilaterally
Abd: Soft and non-distended, minimal tenderness to the lower abdomen without rebound or guarding. Audible bowel sounds
Extremities: No deformities, no swelling
Neuro: alert, no focal neurologic deficit
: deferred
Rectal: deferred
Psych: Normal affect
Skin: Intact
Course
Orders/Labs/Results
Orders:
Orders
10/27/24 20:28
Enema- Treatment ONCE
Type: Milk of Molasses
10/27/24 22:28
Anusol Hc Suppository [Anusol Hc] 25 mg RECTAL NOW STA
Magnesium Citrate [Citroma] 300 ml PO ONCE ONE
Vital Signs
Initial and Last Documented VS:
Initial Vital Signs
Temp Pulse Resp BP Pulse Ox
98.4 F 86 18 204/89 94
10/27/24 18:30 10/27/24 18:30 10/27/24 18:30 10/27/24 18:30 10/27/24 18:30
Last Documented Vital Signs
Temp Pulse Resp BP Pulse Ox
98.4 F 86 18 164/72 96
10/27/24 18:30 10/27/24 18:30 10/27/24 18:30 10/27/24 21:00 10/27/24 21:12
MDM/Problems Addressed
MDM/Problems Addressed:
79-year-old female with history of lung cancer on chemotherapy presenting with constipation. Vital signs on arrival are significant for high blood pressure which improved without intervention.
On exam, patient is resting comfortably, no acute distress. Abdominal exam is benign, no distention, audible bowel sounds. No significant tenderness, no rebound or guarding. Suspect uncomplicated constipation. Lower suspicion for any bowel
obstruction. Will try molasses enema and reassess for improvement.
22:30 -patient was able to pass a small stool. Reports that she still having constipation. Offered manual disimpaction, however patient declined because she has hemorrhoids which are currently hurting. Did discuss mag citrate at home. Patient
would like to try this at home. Reexamination of the abdomen, remains soft and nondistended without any tenderness. Again without present concern for bowel obstruction. Feel stable for discharge. Will send patient home with mag citrate and
Anusol. Also advise introducing MiraLAX into her bowel regiment. Return precautions discussed
*Pulse Oximetry
SaO2: 96
Oxygen Mode of Delivery: Room air
Patient hypoxic: no
*Critical Care Note
Total Time (30-74mins, 75-104mins- exclusive of procedures): Not Applicable
ED Attending Note
-
Portions of this chart may have been created with voice recognition software.� Occasional wrong word or��sound alike� substitutions may have occurred due to the inherent limitations of voice recognition software.
Discharge Plan
Departure
Prescriptions:
No Action
lorazepam 1 MG tablet
1 mg PO TID
lorazepam 2 MG tablet
2 mg PO HS
famotidine 20 MG tablet
20 mg PO BID
acetaminophen [Tylenol] 325 mg Tablet
650 mg PO QIDPRN PRN (Reason: mild pain)
doxazosin 1 mg Tablet
1 mg PO DAILY
cyanocobalamin (vitamin B-12) 1,000 mcg Tablet
1,000 mcg PO DAILY
Eliquis 5 mg Tablet
5 mg PO BID
metoprolol succinate 25 mg Tablet Extended Release 24 Hr
12.5 mg PO DAILY Qty: 30 11RF
losartan 50 mg Tablet
50 mg PO DAILY Qty: 30 0RF
Referrals:
[facility] Jung MD [Family Provider, Family Practice]
Interventions
Interventions:
*Risk Screen - Suicide Last Done: 10/27/24 18:31
*General Assessment Last Done: 10/27/24 18:31
*Neglect/Abuse Screening Last Done: 10/27/24 18:31
*ED- Fall Risk Assessment Last Done: 10/27/24 20:29
*ED COVID-19 Vaccine History Last Done: 10/27/24 18:31
[id number] Assessment Last Done: 10/27/24 20:29
Discharge Date and Time
Print Language: ERITREAN
[2024-10-27] MEDS: CITROMA 300 ML PO (22:59)
[2024-10-27] MEDS: ANUSOL HC 25 MG RECTAL (22:59)
== END 2024-10-27 23:07 | disposition home or self-care (01) ==
LOC: EMR 18:26
PROVIDERS: EMERGENCY PHYSICIAN Student in an Organized Health Care Education/Training Program; FAMILY PHYSICIAN Family Medicine
DX: K59.00 Constipation, unspecified (principal); C34.90 Malignant neoplasm of unspecified part of unspecified bronchus or lung; F17.200 Nicotine dependence, unspecified, uncomplicated; I10 Essential (primary) hypertension; Z85.3 Personal history of malignant neoplasm of breast; I48.0 Paroxysmal atrial fibrillation; Z79.60 Long term (current) use of unspecified immunomodulators and immunosuppressants
CPT/HCPCS: 99283

== ENCOUNTER → 2024-10-28 11:00 | Outpatient (REF) | payer MEDICARE, SELFPAY ==
[2024-10-28 11:37] LABS: Hematocrit 27.4 % (37.0-47.0); Hemoglobin 8.9 g/dL (12.0-16.0); Mean Corp Hgb Conc. 32.5 g/dL (33.0-37.0); Mean Corpuscular Volume 93.5 fL (81.0-99.0); Nucleated Red Blood Cells % 0 %; Platelet Count 240 10^3/uL (130-400); Red Cell Dist. Width 17.4 % (11.5-14.5)
[2024-10-28 12:10] LABS: ALT (SGPT) 31 U/L (0-35); AST (SGOT) 29 U/L (14-36); Albumin 4.3 g/dl (3.5-5.0); Alkaline Phosphatase 100 U/L (38-126); Blood Urea Nitrogen 16 mg/dl (7-17); Calcium 10.2 mg/dl (8.4-10.2); Carbon Dioxide 30 mmol/L (22-30); Chloride 100 mmol/L (98-107); Glucose 99 mg/dl (70-99); Potassium 5.0 mmol/L (3.5-5.1); Sodium 134 mmol/L (135-145); Total Protein 6.7 g/dl (6.3-8.2); eGFR > 60.00
== END ==
LOC: REG 11:00
PROVIDERS: ATTENDING PHYSICIAN Internal Medicine Hematology & Oncology; FAMILY PHYSICIAN Family Medicine
DX: C50.912 Malignant neoplasm of unspecified site of left female breast (principal); R91.1 Solitary pulmonary nodule; C34.12 Malignant neoplasm of upper lobe, left bronchus or lung
CPT/HCPCS: 36415; 80053; 85025

== ENCOUNTER → 2024-11-04 11:49 | Outpatient (REF) | payer MEDICARE, SELFPAY ==
[2024-11-04 13:16] LABS: Hematocrit 22.8 % (37.0-47.0); Hemoglobin 7.6 g/dL (12.0-16.0); Mean Corp Hgb Conc. 33.3 g/dL (33.0-37.0); Mean Corpuscular Volume 94.6 fL (81.0-99.0); Nucleated Red Blood Cells % 0 %; Red Cell Dist. Width 16.7 % (11.5-14.5)
[2024-11-04 13:21] LABS: ALT (SGPT) 41 U/L (0-35); AST (SGOT) 29 U/L (14-36); Albumin 4.0 g/dl (3.5-5.0); Alkaline Phosphatase 94 U/L (38-126); Blood Urea Nitrogen 19 mg/dl (7-17); Calcium 10.0 mg/dl (8.4-10.2); Carbon Dioxide 28 mmol/L (22-30); Chloride 101 mmol/L (98-107); Glucose 102 mg/dl (70-99); Potassium 4.9 mmol/L (3.5-5.1); Sodium 133 mmol/L (135-145); Total Protein 6.3 g/dl (6.3-8.2); eGFR 58.02
[2024-11-04 14:10] LABS: Platelet Count 56 10^3/uL (130-400)
== END ==
LOC: REG 11:49
PROVIDERS: ATTENDING PHYSICIAN Internal Medicine Hematology & Oncology; FAMILY PHYSICIAN Family Medicine
DX: C50.912 Malignant neoplasm of unspecified site of left female breast (principal); R91.1 Solitary pulmonary nodule; C34.12 Malignant neoplasm of upper lobe, left bronchus or lung
CPT/HCPCS: 36415; 80053; 85025

== ENCOUNTER → 2024-11-11 11:13 | Outpatient (REF) | payer MEDICARE, SELFPAY ==
[2024-11-11 12:32] LABS: ALT (SGPT) 30 U/L (0-35); AST (SGOT) 28 U/L (14-36); Albumin 4.0 g/dl (3.5-5.0); Alkaline Phosphatase 90 U/L (38-126); Calcium 9.8 mg/dl (8.4-10.2); Carbon Dioxide 27 mmol/L (22-30); Chloride 101 mmol/L (98-107); Glucose 104 mg/dl (70-99); Potassium 4.9 mmol/L (3.5-5.1); Sodium 133 mmol/L (135-145); Total Protein 6.4 g/dl (6.3-8.2); eGFR > 60.00
[2024-11-11 12:41] LABS: Blood Urea Nitrogen 12 mg/dl (7-17)
[2024-11-11 13:11] LABS: Hematocrit 22.7 % (37.0-47.0); Hemoglobin 7.5 g/dL (12.0-16.0); Mean Corp Hgb Conc. 32.9 g/dL (33.0-37.0); Mean Corpuscular Volume 91.6 fL (81.0-99.0); Nucleated Red Blood Cells % 0 %; Platelet Count 14 10^3/uL (130-400); Red Cell Dist. Width 17.0 % (11.5-14.5)
== END ==
LOC: REG 11:13
PROVIDERS: ATTENDING PHYSICIAN Internal Medicine Hematology & Oncology; FAMILY PHYSICIAN Family Medicine
DX: C50.912 Malignant neoplasm of unspecified site of left female breast (principal); R91.1 Solitary pulmonary nodule; C34.12 Malignant neoplasm of upper lobe, left bronchus or lung
CPT/HCPCS: 36415; 80053; 85025; 86850; 86900; 86901; 86920

== ENCOUNTER 2024-11-12 08:19 | Outpatient (RCR) | payer MEDICARE, SELFPAY ==
[2024-11-06 09:20] VITALS: BP 187/81
[2024-11-06 09:43] VITALS: BP 187/81
[2024-11-06 10:01] VITALS: BP 104/44
[2024-11-06 11:34] VITALS: BP 151/59
[2024-11-12] VITALS (8 sets, daily range): BP systolic 117–166; BP diastolic 57–67
== END 2024-11-19 23:59 | disposition home or self-care (01) ==
LOC: OID 08:19
PROVIDERS: ATTENDING PHYSICIAN Internal Medicine Hematology & Oncology; FAMILY PHYSICIAN Family Medicine
DX: C50.912 Malignant neoplasm of unspecified site of left female breast (principal); R91.1 Solitary pulmonary nodule; C34.12 Malignant neoplasm of upper lobe, left bronchus or lung
CPT/HCPCS: 36415; 36430; 86850; 86900; 86901; 86920; P9016; P9073

== ENCOUNTER → 2024-11-18 11:31 | Outpatient (REF) | payer MEDICARE, SELFPAY ==
[2024-11-18 12:51] LABS: ALT (SGPT) 26 U/L (0-35); AST (SGOT) 28 U/L (14-36); Albumin 4.3 g/dl (3.5-5.0); Alkaline Phosphatase 84 U/L (38-126); Blood Urea Nitrogen 11 mg/dl (7-17); Calcium 9.4 mg/dl (8.4-10.2); Carbon Dioxide 26 mmol/L (22-30); Chloride 104 mmol/L (98-107); Glucose 85 mg/dl (70-99); Potassium 4.5 mmol/L (3.5-5.1); Sodium 134 mmol/L (135-145); Total Protein 6.6 g/dl (6.3-8.2); eGFR > 60.00
[2024-11-18 13:22] LABS: Hematocrit 28.1 % (37.0-47.0); Hemoglobin 9.2 g/dL (12.0-16.0); Mean Corp Hgb Conc. 32.7 g/dL (33.0-37.0); Mean Corpuscular Volume 91.8 fL (81.0-99.0); Platelet Count 94 10^3/uL (130-400); Red Cell Dist. Width 18.3 % (11.5-14.5)
[2024-11-18 13:23] LABS: Absolute Neutrophils -Man Diff 0.5 10^3/uL (1.4-6.5); Anisocytosis Slight; Normal RBC Morphology No; Ovalocytes Slight; Platelets Checked Yes; Total Cells Counted 100
== END ==
LOC: REG 11:31
PROVIDERS: ATTENDING PHYSICIAN Internal Medicine Hematology & Oncology; FAMILY PHYSICIAN Family Medicine
DX: C50.912 Malignant neoplasm of unspecified site of left female breast (principal); R91.1 Solitary pulmonary nodule; C34.12 Malignant neoplasm of upper lobe, left bronchus or lung
CPT/HCPCS: 80053; 85025

== ENCOUNTER → 2024-11-25 11:00 | Outpatient (REF) | payer MEDICARE, SELFPAY ==
[2024-11-25 12:14] LABS: Hematocrit 29.7 % (37.0-47.0); Hemoglobin 9.8 g/dL (12.0-16.0); Mean Corp Hgb Conc. 33.0 g/dL (33.0-37.0); Mean Corpuscular Volume 93.4 fL (81.0-99.0); Nucleated Red Blood Cells % 0 %; Platelet Count 164 10^3/uL (130-400); Red Cell Dist. Width 19.4 % (11.5-14.5)
[2024-11-25 13:33] LABS: ALT (SGPT) 20 U/L (0-35); AST (SGOT) 21 U/L (14-36); Albumin 4.2 g/dl (3.5-5.0); Alkaline Phosphatase 83 U/L (38-126); Blood Urea Nitrogen 10 mg/dl (7-17); Calcium 9.7 mg/dl (8.4-10.2); Carbon Dioxide 25 mmol/L (22-30); Chloride 104 mmol/L (98-107); Glucose 96 mg/dl (70-99); Potassium 4.5 mmol/L (3.5-5.1); Sodium 135 mmol/L (135-145); Total Protein 6.6 g/dl (6.3-8.2); eGFR > 60.00
== END ==
LOC: REG 11:00
PROVIDERS: ATTENDING PHYSICIAN Internal Medicine Hematology & Oncology; FAMILY PHYSICIAN Family Medicine
DX: C50.912 Malignant neoplasm of unspecified site of left female breast (principal); R91.1 Solitary pulmonary nodule; C34.12 Malignant neoplasm of upper lobe, left bronchus or lung
CPT/HCPCS: 36415; 80053; 85025

== ENCOUNTER → 2024-12-02 11:55 | Outpatient (REF) | payer MEDICARE, SELFPAY ==
[2024-12-02 13:23] LABS: Hematocrit 30.5 % (37.0-47.0); Hemoglobin 10.0 g/dL (12.0-16.0); Mean Corp Hgb Conc. 32.8 g/dL (33.0-37.0); Mean Corpuscular Volume 94.1 fL (81.0-99.0); Nucleated Red Blood Cells % 0 %; Platelet Count 216 10^3/uL (130-400); Red Cell Dist. Width 20.2 % (11.5-14.5)
[2024-12-02 13:53] LABS: ALT (SGPT) 17 U/L (0-35); AST (SGOT) 20 U/L (14-36); Albumin 4.2 g/dl (3.5-5.0); Alkaline Phosphatase 74 U/L (38-126); Blood Urea Nitrogen 14 mg/dl (7-17); Calcium 10.0 mg/dl (8.4-10.2); Carbon Dioxide 28 mmol/L (22-30); Chloride 106 mmol/L (98-107); Glucose 123 mg/dl (70-99); Potassium 4.6 mmol/L (3.5-5.1); Sodium 139 mmol/L (135-145); Total Protein 6.6 g/dl (6.3-8.2); eGFR 58.02
== END ==
LOC: REG 11:55
PROVIDERS: ATTENDING PHYSICIAN Internal Medicine Hematology & Oncology; FAMILY PHYSICIAN Family Medicine
DX: C50.912 Malignant neoplasm of unspecified site of left female breast (principal); R91.1 Solitary pulmonary nodule; C34.12 Malignant neoplasm of upper lobe, left bronchus or lung
CPT/HCPCS: 36415; 80053; 85025

== ENCOUNTER → 2024-12-12 12:41 | Outpatient (REF) | payer MEDICARE, SELFPAY ==
[2024-12-12 13:17] LABS: Hematocrit 31.9 % (37.0-47.0); Hemoglobin 10.1 g/dL (12.0-16.0); Mean Corp Hgb Conc. 31.7 g/dL (33.0-37.0); Mean Corpuscular Volume 98.2 fL (81.0-99.0); Nucleated Red Blood Cells % 0 %; Platelet Count 241 10^3/uL (130-400); Red Cell Dist. Width 19.5 % (11.5-14.5)
[2024-12-12 13:45] LABS: ALT (SGPT) 14 U/L (0-35); AST (SGOT) 19 U/L (14-36); Albumin 4.2 g/dl (3.5-5.0); Alkaline Phosphatase 77 U/L (38-126); Blood Urea Nitrogen 15 mg/dl (7-17); Calcium 10.1 mg/dl (8.4-10.2); Carbon Dioxide 28 mmol/L (22-30); Chloride 104 mmol/L (98-107); Glucose 93 mg/dl (70-99); Potassium 4.6 mmol/L (3.5-5.1); Sodium 139 mmol/L (135-145); Total Protein 6.7 g/dl (6.3-8.2); eGFR 58.02
== END ==
LOC: REG 12:41
PROVIDERS: ATTENDING PHYSICIAN Internal Medicine Hematology & Oncology; FAMILY PHYSICIAN Family Medicine
DX: C50.912 Malignant neoplasm of unspecified site of left female breast (principal); R91.1 Solitary pulmonary nodule; C34.12 Malignant neoplasm of upper lobe, left bronchus or lung; Z79.899 Other long term (current) drug therapy
CPT/HCPCS: 36415; 80053; 84443; 85025

== ENCOUNTER → 2024-12-18 11:48 | Outpatient (REF) | payer MEDICARE, SELFPAY | LOC: RAD 11:48 | PROVIDERS: ATTENDING PHYSICIAN Internal Medicine Hematology & Oncology; FAMILY PHYSICIAN Family Medicine | DX: C34.12 Malignant neoplasm of upper lobe, left bronchus or lung (principal); C50.912 Malignant neoplasm of unspecified site of left female breast; R91.1 Solitary pulmonary nodule | CPT/HCPCS: 71260; 74160; Q9967 ==

== ENCOUNTER → 2024-12-25 14:12 | Outpatient (REF) | payer MEDICARE, SELFPAY | LOC: CLAB 14:12 | PROVIDERS: ATTENDING PHYSICIAN Internal Medicine Hematology & Oncology | DX: C50.912 Malignant neoplasm of unspecified site of left female breast (principal); R91.1 Solitary pulmonary nodule; C34.12 Malignant neoplasm of upper lobe, left bronchus or lung; D64.81 Anemia due to antineoplastic chemotherapy; R53.82 Chronic fatigue, unspecified | CPT/HCPCS: 84443 ==

== ENCOUNTER → 2025-01-15 12:55 | Outpatient (REF) | payer MEDICARE, SELFPAY ==
[2025-01-15 14:55] LABS: Hematocrit 33.6 % (37.0-47.0); Hemoglobin 11.1 g/dL (12.0-16.0); Mean Corp Hgb Conc. 33.0 g/dL (33.0-37.0); Mean Corpuscular Volume 100.3 fL (81.0-99.0); Nucleated Red Blood Cells % 0 %; Platelet Count 232 10^3/uL (130-400); Red Cell Dist. Width 16.4 % (11.5-14.5)
[2025-01-15 15:35] LABS: ALT (SGPT) 13 U/L (0-35); AST (SGOT) 18 U/L (14-36); Albumin 4.2 g/dl (3.5-5.0); Alkaline Phosphatase 92 U/L (38-126); Blood Urea Nitrogen 12 mg/dl (7-17); Calcium 9.9 mg/dl (8.4-10.2); Carbon Dioxide 25 mmol/L (22-30); Chloride 105 mmol/L (98-107); Glucose 84 mg/dl (70-99); Potassium 4.1 mmol/L (3.5-5.1); Sodium 135 mmol/L (135-145); Total Protein 6.9 g/dl (6.3-8.2); eGFR 58.02
[2025-01-15 15:54] LABS: TSH 0.68 uIU/ml (0.47-4.68)
== END ==
LOC: REG 12:55
PROVIDERS: ATTENDING PHYSICIAN Internal Medicine Hematology & Oncology; FAMILY PHYSICIAN Family Medicine
DX: C50.912 Malignant neoplasm of unspecified site of left female breast (principal); R91.1 Solitary pulmonary nodule; C34.12 Malignant neoplasm of upper lobe, left bronchus or lung; D64.81 Anemia due to antineoplastic chemotherapy; M48.062 Spinal stenosis, lumbar region with neurogenic claudication
CPT/HCPCS: 36415; 80053; 84443; 85025

== ENCOUNTER → 2025-02-10 11:28 | Outpatient (REF) | payer MEDICARE, SELFPAY ==
[2025-02-10 13:19] LABS: Hematocrit 30.8 % (37.0-47.0); Hemoglobin 10.3 g/dL (12.0-16.0); Mean Corp Hgb Conc. 33.4 g/dL (33.0-37.0); Mean Corpuscular Volume 96.6 fL (81.0-99.0); Nucleated Red Blood Cells % 0 %; Platelet Count 206 10^3/uL (130-400); Red Cell Dist. Width 13.1 % (11.5-14.5)
[2025-02-10 14:09] LABS: ALT (SGPT) 17 U/L (0-35); AST (SGOT) 20 U/L (14-36); Albumin 3.8 g/dl (3.5-5.0); Alkaline Phosphatase 93 U/L (38-126); Blood Urea Nitrogen 19 mg/dl (7-17); Calcium 10.0 mg/dl (8.4-10.2); Carbon Dioxide 26 mmol/L (22-30); Chloride 104 mmol/L (98-107); Glucose 82 mg/dl (70-99); Potassium 5.0 mmol/L (3.5-5.1); Sodium 135 mmol/L (135-145); Total Protein 6.3 g/dl (6.3-8.2); eGFR 51.75
[2025-02-10 14:37] LABS: TSH < 0.02 uIU/ml (0.47-4.68)
== END ==
LOC: REG 11:28
PROVIDERS: ATTENDING PHYSICIAN Internal Medicine Hematology & Oncology; FAMILY PHYSICIAN Family Medicine
DX: C50.912 Malignant neoplasm of unspecified site of left female breast (principal); R91.1 Solitary pulmonary nodule; C34.12 Malignant neoplasm of upper lobe, left bronchus or lung; D64.81 Anemia due to antineoplastic chemotherapy; R53.82 Chronic fatigue, unspecified
CPT/HCPCS: 36415; 80053; 84443; 85025